=== PATIENT | male | born 1940 | race Caucasian/White ===

== ENCOUNTER 2018-12-22 18:48 | Inpatient (IN) | payer MEDICARE, OTHER ==
[~2018-12-22] VITALS: Ht 177.8 cm; Wt 61.7 kg
[2018-12-22 19:47] LABS: BASOPHILS # (AUTO) 0.2 /CMM (0.0-0.2); BASOPHILS % (AUTO) 0.9 % (0.0-2.0); EOSINOPHILS % (AUTO) 1.2 % (0.0-6.0); HEMATOCRIT 31 % (39-51); HEMOGLOBIN 10.1 g/dL (13.5-17.5); LYMPHOCYTES # (AUTO) 3.4 /CMM (0.8-4.8); LYMPHOCYTES % (AUTO) 18.6 % (20.0-44.0); MEAN CORPUSCULAR HGB CONC 33 g/dl (31.0-36.0); MEAN CORPUSCULAR VOLUME 88 fL (80-96); MONOCYTES # (AUTO) 1.2 /CMM (0.1-1.30); MONOCYTES % (AUTO) 6.6 % (2.0-12.0); NEUTROPHILS # (AUTO) 13.4 /CMM (1.8-8.9); NEUTROPHILS % (AUTO) 72.7 % (43.0-81.0); PLATELET COUNT (AUTO) 489 /CMM (150-450); WHITE BLOOD COUNT (AUTO) 18.4 K/uL (4.3-11.0)
[2018-12-22 19:50] LABS: CALCIUM, SERUM 8.7 mg/dL (8.5-10.1); CARBON DIOXIDE 29 mmol/L (21-32); CHLORIDE 97 mmol/L (98-107); CREATININE 0.8 mg/dL (0.6-1.3); GLUCOSE 110 mg/dL (74-106); POTASSIUM 3.6 mmol/L (3.5-5.1); SODIUM SERUM 132 mmol/L (136-145); UREA NITROGEN, BLOOD 32 mg/dL (7-18)
--- NOTE | 2018-12-22 20:00 | NUR ---
RN NOTES RECEIVED PT WITH JTUBE OUT. PATIENT IS AOX 2. NO ACUTE RESPIRATORY DISTRESS. DENIES PAIN.AFEBRILE. SRI. AT BEDSIDE AND ASSESSED PT STOMA WTIH ORDER TO ADMIT PATIENT TO REPLACED J-TUBE.
--- NOTE | 2018-12-22 20:01 | NUR ---
MS 314-2
--- NOTE | 2018-12-22 20:20 | NUR ---
RN NOTES IV STARTED ON RFA G 20 WITH GOOD BLOOD RETURN
--- NOTE | 2018-12-22 21:20 | NUR ---
RN NOTES CALLED AND REPORT GIVEN TO KOBE ANTOINE FROM [facility] .
[2018-12-22 21:30] VITALS: BP 106/68
--- NOTE | 2018-12-22 21:30 | NUR ---
rn ms admitting opening notes received patient from er via [place]hol[place], safely transferred to bed , awake alert and oriented x2, respirations even and unlabored with equal rise and fall of chest, able to make needs known, graf catheter in place, draining clear edmond urine color, iv site to right fa #20 intact and patent, no redness, no infiltration, body assessment done, noted with sacrococcyx pressure ulcer, left and right heel dti's and multiple scabs to abdomen area, left and right lateral torso area, pictures taken placed in chart, jtube site stoma red in color noted blue suture to site, site was cleansed and covered with dd. belongings list done, offloaded affected wound sites, repositioned, dr mary grace watkins aware of admission awaiting orders and will follow md orders, at this time patient remains comfortable. all needs were attended, will continue to monitor and address needs.
[2018-12-22] MEDS ORDERED: IV D5/ 0.9% NACL 1,000 ML IV SCH (22:00)
--- NOTE | 2018-12-22 22:20 | NUR ---
rn ms notes called and spoke to mary grace munoz regarding patient stating pain 7/10 new order obtained and read back morphine 2mg iv q2hr prn for pain
[2018-12-22] MEDS: MORPHINE SULFATE INJ 2 MG/ML DISP.SYRIN IV PRN (22:59)
--- NOTE | 2018-12-22 22:59 | NUR ---
rn ms notes morphine prn given as ordered patient complaint of generalized pain 12/18 vs wnl. will continue to monitor for effectiveness
[2018-12-23] MEDS ORDERED: ZINC220C6 JT (03:42)
[2018-12-23] MEDS ORDERED: TERA5CAP4 JT (03:42)
[2018-12-23] MEDS ORDERED: INSU100V3 SQ (03:42)
[2018-12-23] MEDS ORDERED: FAMO20TA8 JT (03:42)
[2018-12-23] MEDS ORDERED: DOCU-141 JT (03:42)
[2018-12-23] MEDS ORDERED: CARB-94 JT (03:42)
[2018-12-23] MEDS ORDERED: WARF3TAB29 JT (03:42)
[2018-12-23] MEDS ORDERED: ARGI1POW13 JT (03:42)
[2018-12-23] MEDS ORDERED: LOPE2TAB25 JT (03:42)
[2018-12-23] MEDS ORDERED: LIPA1CAP8 JT (03:42)
[2018-12-23] MEDS ORDERED: ASCO-340 JT (03:42)
[2018-12-23] MEDS ORDERED: MULT1TAB73 JT (03:42)
[2018-12-23] MEDS ORDERED: FERR300L JT (03:42)
--- NOTE | 2018-12-23 06:28 | NUR ---
RN MS CLOSING NOTES RECEIVED PATIENT IN BED AWAKE ALERT AND ORIENTED X 2, RESPIRATIONS EVEN AND UNLABORED WITH EQUAL RISE AND FALL OF CHEST, DENIES ANY PAIN AT THIS TIME, IV SITE TO RIGHT FA#20 G INTACT AND PATENT, NO REDNESS, NO INFILTRATION PRESENT, IVF RUNNING ORDERED, REPOSITIONED FOR WOUND AND SKIN MANAGEMENT, HEELS OFFLOADED, PATIENT REMAINS NPO AT THIS TIME, HEAD OF BED ELEVATED FOR ASPIRATION PRECAUTIONS, PATTERSON CATHETER INTACT AND PATENT, DRAINING WELL URINE CLEAR JANE COLOR, MED RECON IN PLACE MD TO F/UP. SAFETY PRECAUTIONS IN PLACE, LOW BED AND LOCKED , BED ALARM IN PLACE, ORAL CARE PROVIDED, JTUBE SITE DSG REMAINS CLEAN AND INTACT, SACRAL DRESSING INTACT, ALL NEEDS ATTENDED AT THIS TIME, WILL CONTINUE TO MONITOR AND ENDORSE TO NEXT SHIFT.
[2018-12-23 06:43] LABS: BASOPHILS # (AUTO) 0.4 /CMM (0.0-0.2); EOSINOPHILS % (AUTO) 1.5 % (0.0-6.0); HEMATOCRIT 29 % (39-51); HEMOGLOBIN 9.6 g/dL (13.5-17.5); LYMPHOCYTES # (AUTO) 2.1 /CMM (0.8-4.8); LYMPHOCYTES % (AUTO) 16.4 % (20.0-44.0); MEAN CORPUSCULAR HGB CONC 33 g/dl (31.0-36.0); MEAN CORPUSCULAR VOLUME 88 fL (80-96); MONOCYTES # (AUTO) 0.7 /CMM (0.1-1.30); MONOCYTES % (AUTO) 5.7 % (2.0-12.0); NEUTROPHILS # (AUTO) 9.3 /CMM (1.8-8.9); NEUTROPHILS % (AUTO) 73.4 % (43.0-81.0); PLATELET COUNT (AUTO) 466 /CMM (150-450); RED BLOOD CELL COUNT(AUTO) 3.33 MIL/uL (4.5-6.0); WHITE BLOOD COUNT (AUTO) 12.6 K/uL (4.3-11.0)
[2018-12-23 06:56] LABS: CALCIUM, SERUM 8.4 mg/dL (8.5-10.1); CARBON DIOXIDE 30 mmol/L (21-32); CHLORIDE 100 mmol/L (98-107); CREATININE 0.6 mg/dL (0.6-1.3); GLUCOSE 127 mg/dL (74-106); POTASSIUM 3.4 mmol/L (3.5-5.1); SODIUM SERUM 136 mmol/L (136-145); UREA NITROGEN, BLOOD 28 mg/dL (7-18)
--- NOTE | 2018-12-23 07:20 | NUR ---
RN OPENING NOTES RECEIVED PATIENT IN BED RESTING. A/OX 2-3, ABLE TO MAKE NEEDS KNOWN. NOT IN ANY FORM OF DISTRESS, NO SOB, DENIED PAIN OR DISCOMFORT AT THIS TIME. IV ACCESS INTACT AND PATENT. PATTERSON IN PLACE, DRAINING CLEAR JANE URINE. KEPT PATIENT SAFE AND COMFORTABLE. BED IN LOW/LOCKED POSITION ,HOB ELEVATED, SIDERAILS UPX2, CALL LIGHT IN REACH, BED ALARM ON. WILL CONTINUE TO MONIOTR ACCORDINGLY.
[2018-12-23] MEDS ORDERED: AMIN30LI2 JT (07:41)
[2018-12-23] MEDS ORDERED: POLY15DR40 EACHEYE (07:41)
[2018-12-23] MEDS ORDERED: ACET-868 JT (07:41)
[2018-12-23] MEDS ORDERED: IPRA3AMP23 IH (07:41)
[2018-12-23] MEDS ORDERED: ONDA4TAB5 JT (07:41)
[2018-12-23] MEDS ORDERED: NUT.237L30 JT (07:41)
[2018-12-23] MEDS ORDERED: DOCU50LI JT (07:41)
[2018-12-23] MEDS ORDERED: MAGN400O6 JT (07:41)
[2018-12-23] MEDS ORDERED: ACET-2605 JT (07:41)
[2018-12-23] MEDS ORDERED: ACET650S26 JT ×2 (07:41)
[2018-12-23] MEDS ORDERED: VIT500LI JT (07:41)
[2018-12-23] MEDS ORDERED: IV D5/ 0.9% NACL 1,000 ML IV PRN (09:00)
[2018-12-23 09:03] VITALS: BP 104/64
[2018-12-23] MEDS ORDERED: POTASSIUM CL. PREMIX PERIPHER. 50 ML IV SCH (11:22)
[2018-12-23] MEDS ORDERED: LOPERAMIDE HCL UDC(2 MG/10 ML) 2 MG/10 ML UDC GT PRN (14:00)
[2018-12-23] MEDS ORDERED: ACETAMINOPHEN 325 MG TABLET PO PRN (14:00)
[2018-12-23] MEDS ORDERED: ONDANSETRON HCL 4 MG/5 ML SOLUTION GT PRN (14:00)
[2018-12-23] MEDS ORDERED: GLUCERNA 1.2 1,000 ML BOTTLE JT SCH (14:00)
[2018-12-23] MEDS ORDERED: MAGNESIUM HYDROXIDE 30 ML UDC JT PRN (14:00)
[2018-12-23] MEDS ORDERED: MISCELLANEOUS MED 1 EA EA JT PRN (14:00)
[2018-12-23] MEDS ORDERED: ACETAMINOPHEN 650 MG/20.3 ML UDC JT PRN (14:00)
[2018-12-23] MEDS ORDERED: INSULIN REGULAR, HUMAN 100 UNIT/ML 3 ML VIAL SQ PRN (14:00)
[2018-12-23] MEDS: Potassium Chloride 40 MEQ in IV D5/ 0.9% NACL 1,000 ML IV PRN (14:49)
[2018-12-23 15:18] VITALS: BP 99/59
[2018-12-23] MEDS ORDERED: LIDOCAINE 1%-EPI 1:100,000 20 ML VIAL TP ONE ×2 (16:00→16:30)
--- NOTE | 2018-12-23 16:46 | NUR ---
RN NOTES: DIET; CONSENT; FAMILY CONTACT INFO SPOKE WITH MAURICIO (NIECE/DPOA) [phone]. PER MAURICIO, PATIENT IS TUBE FEEDING ONLY. MAY TAKE SMALL AMOUNT OF ICE CHIPS PO. WITNESS BY ELINA CASTILLO VIA PHONE CALL. DR ИРИНА PAREDES MADE AWARE. PER , MAIA TO GIVE ICE CHIPS. ALSO GAVE CONSENT TO REINSERTION OF TUBE FEEDING. WITNESS BY ELINA BARTHOLOMEW
[2018-12-23] MEDS: DOCUSATE SODIUM LIQ 100 MG/10 ML UDC JT SCH (17:00)
--- NOTE | 2018-12-23 17:30 | NUR ---
RN NOTES DR CARINA PAREDES AT BEDSIDE DOING REINSERTION OF TUBE FEEDING.
--- NOTE | 2018-12-23 17:37 | NUR ---
RN NOTES XRAY ORDERED TO CHECK PLACEMENT.
[2018-12-23] MEDS ORDERED: DIATR MEGLU/DIATRIZOATE SODIUM 30 ML BOTTLE (GASTROGRAPHIN) ONE (17:47)
[2018-12-23] MEDS: AMYLASE/LIPASE/PROTEASE 1 CAP.EC PO SCH (18:00)
[2018-12-23] MEDS: CLOTRIMAZOLE 1% 15 GM TUBE TP SCH (18:06)
--- NOTE | 2018-12-23 19:10 | NUR ---
RN MS OPENING NOTES RECEIVED PATIENT IN BED AWAKE ALERT AND ORIENTED X 2 ABLE TO MAKE SIMPLE NEEDS KNOWN, RESPIRATIONS EVEN AND UNLABORED WITH EQUAL RISE AND FALL OF CHEST, DENIES ANY PAIN OR DISCOMFORT AT THIS TIME, PATTERSON CATHETER INTACT AND DRAINING WELL URINE JANE COLOR CLEAR, HEELS OFFLOADED, SACRAL OFFLOADED, IV SITE TO RIGHT FA #20 G INTACT AND PATENT,IVF RUNNING ORDERED, NO REDNESS, NO INFILTRATION PRESENT, ABD SITE WITH GAUZE IN PLACE, AWAITING REGGIE FOR REINSERTION JT PROCEDURE ,PER MD ORDERS WILL CONTINUE TO HOLD FEEDING AND MEDS TILL FURTHER ORDERS. ORAL CARE PROVIDED, ORIENTED TO STAFF AND CALL LIGHT AND KEPT WITHIN REACH, LOW BED AND LOCKED, BED ALARM IN PLACE, PATIENT REFUSED TO HAVE ANY PRESSURE RELIEVING TO RIGHT HAND CONTRACTURE. WILL CONTINUE TO MONITOR ALL NEEDS ATTENDED AT THIS TIME, WILL CONTINUE TO MONITOR.
--- NOTE | 2018-12-23 19:30 | NUR ---
RN CLOSING NOTES PATIENT IN STABLE CONDITION, ALL NEEDS ATTENDED AND PROVIDED, ALL DUE MEDICATIONS GIVEN ORDERED. ASSISTED PATIENT WITH ADLS. TURNED AND REPOSITIONED PATIENT EVERY 2HRS NEEDED. WOUND CARE RENDERED. KEPT PATIENT SAFE AND COMFORTABLE. BED IN LOW/LOCKED POSITION, SIDERIALS UPX2, CALL LIGHT IN REACH. ENDORSED TO NIGHT RN FOR MARLEN.
--- NOTE | 2018-12-23 19:31 | NUR ---
RN NOTES ENDORSED TO ELINA CARLSON TO CALL/NOTIFY DR CARINA PAREDES, WHEN THE XRAY TUBE PLACEMENT RESULT COMES UP.
[2018-12-23] MEDS: IPRATROPIUM NEB FS 0.5 MG/2.5 ML AMPUL.NEB NEB SCH (19:42)
[2018-12-23 20:00] VITALS: BP 110/66
--- NOTE | 2018-12-23 20:00 | NUR ---
RN MS NOTES CALLED AND SPOKE TO DR.SAM PAREDES MADE AWARE OF XR ABDOMEN RESULTS. NO FURTHER ORDERS AT THIS TIME.
[2018-12-23 20:41] VITALS: BP 110/66
[2018-12-23] MEDS: CARBIDOPA/LEVODOPA 25/250 MG 1 UDTAB GT SCH (20:59)
[2018-12-23] MEDS: FAMOTIDINE (20 MG) 20 MG TABLET JT SCH (20:59)
[2018-12-23] MEDS: FERROUS SULFATE UDC 300 MG/5 ML UDC JT SCH (20:59)
[2018-12-23] MEDS: TERAZOSIN HCL 5 MG CAPSULE GT SCH (22:00)
--- NOTE | 2018-12-23 22:08 | NUR ---
rn ms notes unable to administer scheduled medications awaiting jt placement and further orders. per md orders hold jt meds and feeding.
[2018-12-24] MEDS: MORPHINE SULFATE INJ 2 MG/ML DISP.SYRIN IV PRN (01:11)
--- NOTE | 2018-12-24 01:11 | NUR ---
rn ms notes patient complaint of generalized pain and pain to sacral states "10/" offered pain medication morphine patient agreed. vs wnl 112/71,92,18,98%,97.6 morphine prn given as ordered will continue to monitor for effectiveness.
--- NOTE | 2018-12-24 01:26 | NUR ---
rn ms notes noted loose bowel movement liquid, foul odor, stool specimen collected for c-diff. new order for c-diff collection will continue to f/up for results and notify .
[2018-12-24] MEDS: IPRATROPIUM NEB FS 0.5 MG/2.5 ML AMPUL.NEB NEB SCH ×4 (02:18→20:09)
[2018-12-24] MEDS: Potassium Chloride 40 MEQ in IV D5/ 0.9% NACL 1,000 ML IV PRN ×2 (03:55→19:18)
[2018-12-24] MEDS: FERROUS SULFATE UDC 300 MG/5 ML UDC JT SCH ×3 (04:22→21:34)
[2018-12-24] MEDS: CARBIDOPA/LEVODOPA 25/250 MG 1 UDTAB GT SCH ×3 (04:22→21:34)
[2018-12-24 06:38] LABS: BASOPHILS % (AUTO) 0.2 % (0.0-2.0); EOSINOPHILS % (AUTO) 1.6 % (0.0-6.0); HEMATOCRIT 31 % (39-51); HEMOGLOBIN 9.8 g/dL (13.5-17.5); LYMPHOCYTES # (AUTO) 2.1 /CMM (0.8-4.8); LYMPHOCYTES % (AUTO) 17.5 % (20.0-44.0); MEAN CORPUSCULAR HGB CONC 32 g/dl (31.0-36.0); MEAN CORPUSCULAR VOLUME 89 fL (80-96); MONOCYTES # (AUTO) 0.8 /CMM (0.1-1.30); NEUTROPHILS # (AUTO) 8.9 /CMM (1.8-8.9); NEUTROPHILS % (AUTO) 73.7 % (43.0-81.0); PLATELET COUNT (AUTO) 518 /CMM (150-450); RED BLOOD CELL COUNT(AUTO) 3.44 MIL/uL (4.5-6.0); WHITE BLOOD COUNT (AUTO) 12.1 K/uL (4.3-11.0)
[2018-12-24 06:47] LABS: CALCIUM, SERUM 8.4 mg/dL (8.5-10.1); CARBON DIOXIDE 27 mmol/L (21-32); CHLORIDE 108 mmol/L (98-107); CREATININE 0.6 mg/dL (0.6-1.3); GLUCOSE 123 mg/dL (74-106); PHOSPHORUS 3.7 mg/dL (2.5-4.9); POTASSIUM 3.6 mmol/L (3.5-5.1); SODIUM SERUM 143 mmol/L (136-145); UREA NITROGEN, BLOOD 20 mg/dL (7-18)
--- NOTE | 2018-12-24 06:51 | NUR ---
RN MS CLOSING NOTES PATIENT IN BED AWAKE ALERT AND ORIENTED X 2 ABLE TO MAKE SIMPLE NEEDS KNOWN, RESPIRATIONS EVEN AND UNLABORED WITH EQUAL RISE AND FALL OF CHEST, DENIES ANY PAIN OR DISCOMFORT AT THIS TIME, PATTERSON CATHETER INTACT AND DRAINING WELL URINE JANE COLOR CLEAR, HEELS OFFLOADED, SACRAL OFFLOADED,WOUND CARE PROVIDED ORDERED,TOLERATED WELL, DRESSING REMAINS CLEAN/DRY AND INTACT, IV SITE TO RIGHT FA #20 G INTACT AND PATENT,IVF RUNNING ORDERED, NO REDNESS, NO INFILTRATION PRESENT, ABD STOMA SITE WITH CLEAN GAUZE IN PLACE, AWAITING REGGIE FOR REINSERTION JT PROCEDURE ,PER MD ORDERS HELD FEEDING AND MEDS TILL FURTHER ORDERS. ORAL CARE PROVIDED, SPECIALTY KCI MATTRESS PLACED AFFECTED WOUND AREAS OFFLOADED. FOR WOUND CARE AND SKIN MANAGEMENT.CALL LIGHT KEPT WITHIN REACH, LOW BED AND LOCKED, BED ALARM IN PLACE, PATIENT REFUSED TO HAVE ANY PRESSURE RELIEVING TO RIGHT HAND CONTRACTURE. WILL CONTINUE TO MONITOR ALL NEEDS ATTENDED AT THIS TIME, WILL CONTINUE TO MONITOR AND ENDORSE TO NEXT SHIFT. PATIENT REMAINS COMFORTABLE.
[2018-12-24] MEDS: AMYLASE/LIPASE/PROTEASE 1 CAP.EC PO SCH ×2 (08:00→13:00)
--- NOTE | 2018-12-24 08:00 | NUR ---
MS RN OPENING NOTES Received Patient resting and asleep in bed. A/O x 1-2. VS stable with no acute distress. Breathing even and unlabored on room air with no respiratory distress. Denies pain. Lara Cath in place and operational with clear edmond coloured output. Lara Cath in stoma placed to keep open. Stoma dressing clean, dry, and intact. 20g PIV on RFA clean, dry, intact. Safety precautions in place. Bed locked and set to lowest position with side rails x 2 up. All needs rendered at this time. Will continue to monitor.
--- NOTE | 2018-12-24 08:12 | NUR ---
WOUND CARE CONSULT WOUND CARE RECEIVED CONSULT FOR MULTIPLE WOUNDS. WOUND CARE WILL DEFER CONSULT AND TREATMENT PLANS TO PLASTIC SURGICAL TEAM INCLUDING DPDariusz VICENTE WHO ARE CURRENTLY FOLLOWING THIS PATIENT. PATIENT WITH REGINALD AT 13, ALL PRESSURE ULCER PREVENTION MEASURES ARE NOTED TO BE IN PLACE AT THIS TIME. WILL SEE PRN.
[2018-12-24 08:30] VITALS: BP 108/64
[2018-12-24] MEDS ORDERED: Z GUARD REMEDY 2 OZ OINT TP PRN (08:30)
[2018-12-24] MEDS: PROSOURCE / PROSTAT (PYXIS) 30 ML UDC GT SCH ×2 (09:00→17:29)
[2018-12-24] MEDS: DOCUSATE SODIUM LIQ 100 MG/10 ML UDC JT SCH ×2 (09:00→16:05)
[2018-12-24] MEDS: FAMOTIDINE (20 MG) 20 MG TABLET JT SCH ×2 (09:00→21:34)
[2018-12-24] MEDS: ACETAMINOPHEN 650 MG/20.3 ML UDC JT SCH (09:00)
[2018-12-24] MEDS: MULTIVIT W/MINERALS 1 TAB TABLET GT SCH (09:00)
[2018-12-24] MEDS: ZINC SULFATE 220 MG CAPSULE JT SCH (09:00)
[2018-12-24] MEDS: ASCORBIC ACID 500 MG TABLET GT SCH ×2 (09:00→16:04)
[2018-12-24] MEDS: DAKINS QUARTER STRENGTH (0.125%) 480 ML BOTTLE TOP SCH (09:30)
[2018-12-24] MEDS: CLOTRIMAZOLE 1% 15 GM TUBE TP SCH ×2 (09:30→17:29)
[2018-12-24] MEDS: Z GUARD REMEDY 2 OZ OINT TP SCH (09:31)
--- NOTE | 2018-12-24 10:47 | NUR ---
MS RN NOTES Notified Dr. Ferraro of stool results positive for C-Diff at this time. Obtained order for Flagyl 500mg IVPB TID. Noted and carried out. Isolation precautions in place. Will continue to monitor.
--- NOTE | 2018-12-24 12:34 | NUR ---
MS RN NOTES Notified and requested consult from [facility] for C-Diff. Will continue to monitor.
[2018-12-24] MEDS: METRONIDAZOLE 500MG/ NS 100ML 500 MG in PREMIX 1 EA IV SCH ×2 (16:02→21:36)
[2018-12-24 16:19] VITALS: BP_SYST 114; BP_SYST 167; BP_DIAS 66; BP_DIAS 78
[2018-12-24] MEDS ORDERED: LIDOCAINE 1%-EPI 1:100,000 20 ML VIAL TP ONE (16:30)
[2018-12-24] MEDS ORDERED: WARFARIN SODIUM 2.5 MG TABLET PO SCH (17:00)
[2018-12-24] MEDS: LIPASE/PROTEASE/AMYLASE 1 EACH CAPSULE.DR PO SCH (17:28)
[2018-12-24] MEDS: VANCOMYCIN HCL 125 MG/2.5 ML ORAL.SUSP JT SCH ×2 (17:43→23:47)
[2018-12-24] MEDS: GLUCERNA 1.2 1,000 ML BOTTLE NG PRN (19:18)
--- NOTE | 2018-12-24 19:18 | NUR ---
MS RN CLOSING NOTES Patient resting and asleep in bed. A/O x 1-2. VS stable with no acute distress. Breathing even and unlabored on room air with no respiratory distress. Denies pain. Wound care treatments done as ordered. Lara Cath in place and operational with clear edmond coloured output. J-TUBE in place and operational with Glucerna 1.2 running at 30ml/hr. Patient tolerating well. J-TUBE site clean and dry with dressing in place. 20g PIV on RFA clean, dry, intact with IVF running at 70ml/hr. Safety precautions in place. Bed locked and set to lowest position with side rails x 2 up. All needs rendered at this time. Will endorse plan of care to oncoming shift.
--- NOTE | 2018-12-24 19:30 | NUR ---
RN MS OPENING NOTES RECEIVED PATIENT RESTING IN BED. EASILY AROUSABLE. ALERT AND ORIENTED X2, VERBALLY RESPONSIVE. BREATHING EVEN AND UNLABORED. NO SOB NOTED. TOLERATING ROOM AIR. NO S/S OF PAIN OR DISCOMFORT. NO FACIAL GRIMACING. IV ON RIGHT FOREARM INTACT AND PATENT WITH IVF INFUSING. SKIN DRY AND WARM TO TOUCH. AFEBRILE. PATIENT NOTED WITH PATTERSON CATH, INTACT AND DRAINING WELL. PATIENT ALSO ON GTUBE GLUCERNA AT 30ML/HR. TOLERATING WELL WITH NO RESIDUAL NOTED. ALL OTHER NEEDS ATTENDED TO. SAFETY MEASURES IN PLACE. CALL LIGHT WITHIN REACH. WILL CONTINUE TO MONITOR.
[2018-12-24 20:47] VITALS: BP 118/69
[2018-12-24] MEDS: TERAZOSIN HCL 5 MG CAPSULE GT SCH (21:34)
--- NOTE | 2018-12-25 00:30 | NUR ---
RN NOTES Report received from ELINA Dave. Patient asleep, easily arousable. Breathing even and unlabored. Not in any distress. Peripheral IV infusing at 70mL/hr. Tube feeding of Glucerna running at 35mL/hr. Patient on low air loss mattress. Lara catheter in place, draining well. Safety measures in place; call light within reach, bed in low, locked position. Will continue to monitor
[2018-12-25] MEDS: IPRATROPIUM NEB FS 0.5 MG/2.5 ML AMPUL.NEB NEB SCH ×4 (01:15→19:30)
--- NOTE | 2018-12-25 03:15 | NUR ---
RN NOTES Patient moved his bowels. Wound treatment done. Dressing changed
[2018-12-25] MEDS: FERROUS SULFATE UDC 300 MG/5 ML UDC JT SCH ×3 (05:00→21:04)
[2018-12-25] MEDS: METRONIDAZOLE 500MG/ NS 100ML 500 MG in PREMIX 1 EA IV SCH ×3 (05:00→21:23)
[2018-12-25] MEDS: CARBIDOPA/LEVODOPA 25/250 MG 1 UDTAB GT SCH ×3 (05:00→21:04)
[2018-12-25] MEDS: VANCOMYCIN HCL 125 MG/2.5 ML ORAL.SUSP JT SCH ×3 (05:01→18:40)
--- NOTE | 2018-12-25 06:51 | NUR ---
MS RN CLOSING NOTES Patient sleeping in bed, easily arousable. Breathing even and unlabored. Not in any distress. Peripheral IV infusing at 70mL/hr. Tube feeding infusing at 40mL/hr with no residuals at this time. Lara catheter in place- drained 450mL of urine. Isolation precautions maintained. Safety measures in place; call light within reach, bed in low, locked position. Will endorse MARLEN to oncoming RN
[2018-12-25 08:00] VITALS: BP 120/68
--- NOTE | 2018-12-25 08:10 | NUR ---
RN OPENING NOTE REC PT. PT STABLE, VSS, NO S/S OF SOB/RESP DISTRESS. PT TO HAVE SACRAL DEBRIDEMENT TODAY. SAFETY MEASURES IN PLACE, CALL LIGHT IN REACH. WILL CONT TO MONITOR.
[2018-12-25] MEDS: MULTIVIT W/MINERALS 1 TAB TABLET GT SCH (08:55)
[2018-12-25] MEDS: ACETAMINOPHEN 650 MG/20.3 ML UDC JT SCH (08:55)
[2018-12-25] MEDS: Z GUARD REMEDY 2 OZ OINT TP SCH (08:55)
[2018-12-25] MEDS: ASCORBIC ACID 500 MG TABLET GT SCH ×2 (08:55→16:26)
[2018-12-25] MEDS: ZINC SULFATE 220 MG CAPSULE JT SCH (08:55)
[2018-12-25] MEDS: FAMOTIDINE (20 MG) 20 MG TABLET JT SCH ×2 (08:55→21:04)
[2018-12-25] MEDS: DOCUSATE SODIUM LIQ 100 MG/10 ML UDC JT SCH ×2 (08:56→16:28)
[2018-12-25] MEDS: LIPASE/PROTEASE/AMYLASE 1 EACH CAPSULE.DR PO SCH ×3 (08:56→18:40)
[2018-12-25] MEDS: PROSOURCE / PROSTAT (PYXIS) 30 ML UDC GT SCH ×3 (09:09→16:28)
[2018-12-25] MEDS: DAKINS QUARTER STRENGTH (0.125%) 480 ML BOTTLE TOP SCH (09:10)
[2018-12-25] MEDS: CLOTRIMAZOLE 1% 15 GM TUBE TP SCH ×2 (09:10→16:28)
[2018-12-25] MEDS ORDERED: SILVER NITRATE APPLICATOR 1 EA BOX TP STA (10:28)
[2018-12-25] MEDS: Potassium Chloride 40 MEQ in IV D5/ 0.9% NACL 1,000 ML IV PRN (12:43)
[2018-12-25] MEDS: HYDROGEL DRESSING 90 GM TUBE TP SCH ×2 (13:30→21:00)
[2018-12-25 16:00] VITALS: BP 125/70
[2018-12-25] MEDS: WARFARIN SODIUM 2 MG TABLET PO SCH (16:27)
--- NOTE | 2018-12-25 17:50 | NUR ---
RN CLOSING NOTE BEDSIDE SURGERY [id number]. PT HAS MILD, TOLERABLE LEVEL OF PAIN POST SURGERY. ALL PT NEEDS ANTICIPATED AND MET. SAFETY MEASURES IN PLACE, CALL LIGHT IN REACH. WILL ENDORSE TO COMMISSARY CLERK FOR MARLEN.
--- NOTE | 2018-12-25 19:30 | NUR ---
MS CULINARY ARTS INSTRUCTOR INITIAL NOTES RECEIVED REPORT FROM AM NURSE AND SEEN PT IN BED AWAKE AND ALERT, RE-ORIENTED WHERE HE AT HOW TO USED THE CALL LIGHT SYSTEM. NO SIGNS OF ANY DISTRESS NOTED. IVF D5NS INFUSING AT THIS TIME. G-TUBE FEEDING GLUCERNA AT 55ML/HR TOLERATED WELL. NO ASPIRATION NOTED. O RESIDUAL NOTED. KEPT HIM WARM AND COMFORTABLE AT ALL TIMES. ISOLATION PRECAUTION IMPLEMENTED AND OBSERVED. WILL CONTINUE MONITORING. PLACE CALL LIGHT AT REACH.
[2018-12-25 20:00] VITALS: BP 118/69
[2018-12-25] MEDS: TERAZOSIN HCL 5 MG CAPSULE GT SCH (21:25)
--- NOTE | 2018-12-25 22:00 | NUR ---
ms sydnie notes routine meds given letty g-tube and tolerated well no aspiration noted. wound care treatment also done , reposition pt for comfort. kept him warm and comfortable at all times. will continue monitoring.
[2018-12-26] MEDS: VANCOMYCIN HCL 125 MG/2.5 ML ORAL.SUSP JT SCH ×4 (00:16→17:33)
--- NOTE | 2018-12-26 00:47 | NUR ---
ms sydnie notes' pt sleeping comfortably in bed without any distress noted. IVF still infusing and g-tube tolerated well, breathing even and non-labored. kept him warm and comfortable at all times. will continue monitoring.
[2018-12-26] MEDS: IPRATROPIUM NEB FS 0.5 MG/2.5 ML AMPUL.NEB NEB SCH ×4 (01:30→20:42)
[2018-12-26] MEDS: METRONIDAZOLE 500MG/ NS 100ML 500 MG in PREMIX 1 EA IV SCH ×3 (04:10→21:22)
[2018-12-26] MEDS: CARBIDOPA/LEVODOPA 25/250 MG 1 UDTAB GT SCH ×3 (05:18→20:41)
[2018-12-26] MEDS: FERROUS SULFATE UDC 300 MG/5 ML UDC JT SCH ×3 (05:18→20:41)
[2018-12-26] MEDS: CLOTRIMAZOLE 1% 15 GM TUBE TP SCH ×3 (06:00→17:36)
[2018-12-26] MEDS: Z GUARD REMEDY 2 OZ OINT TP SCH ×2 (06:00→09:13)
[2018-12-26] MEDS: HYDROGEL DRESSING 90 GM TUBE TP SCH ×3 (06:00→22:36)
[2018-12-26] MEDS: Potassium Chloride 40 MEQ in IV D5/ 0.9% NACL 1,000 ML IV PRN ×2 (06:19→20:40)
--- NOTE | 2018-12-26 06:45 | NUR ---
ms trade promotion analyst closing notes pt awake and alert watching TV and no signs of any distress noted at this time. Morning care done as well as his wound care treatment. all due meds given and all needs met . Stable letty the night and slept well. respiration even and non-labored. G-tube feeding tolerated well , no aspiration noted. kept him warm and comfortable at all times. will endorse to am nurse for continuity of care.
[2018-12-26 06:51] LABS: BASOPHILS % (AUTO) 0.2 % (0.0-2.0); EOSINOPHILS % (AUTO) 2.4 % (0.0-6.0); HEMATOCRIT 29 % (39-51); HEMOGLOBIN 9.5 g/dL (13.5-17.5); LYMPHOCYTES # (AUTO) 2.4 /CMM (0.8-4.8); LYMPHOCYTES % (AUTO) 21.9 % (20.0-44.0); MEAN CORPUSCULAR HGB CONC 32 g/dl (31.0-36.0); MEAN CORPUSCULAR VOLUME 89 fL (80-96); MONOCYTES # (AUTO) 0.7 /CMM (0.1-1.30); MONOCYTES % (AUTO) 5.9 % (2.0-12.0); NEUTROPHILS # (AUTO) 7.7 /CMM (1.8-8.9); NEUTROPHILS % (AUTO) 69.6 % (43.0-81.0); PLATELET COUNT (AUTO) 457 /CMM (150-450); WHITE BLOOD COUNT (AUTO) 11.1 K/uL (4.3-11.0)
[2018-12-26 07:08] LABS: CALCIUM, SERUM 8.1 mg/dL (8.5-10.1); CARBON DIOXIDE 23 mmol/L (21-32); CHLORIDE 114 mmol/L (98-107); CREATININE 0.6 mg/dL (0.6-1.3); GLUCOSE 131 mg/dL (74-106); MAGNESIUM 1.8 mg/dL (1.8-2.4); POTASSIUM 3.9 mmol/L (3.5-5.1); SODIUM SERUM 149 mmol/L (136-145); UREA NITROGEN, BLOOD 13 mg/dL (7-18)
[2018-12-26 08:00] VITALS: BP 110/61
--- NOTE | 2018-12-26 08:00 | NUR ---
MS RN AM NOTES RECEIVED PT IN BED AWAKE AND ALERT, RE-ORIENTED WHERE HE IS AND HOW TO USE THE CALL LIGHT. NO SIGNS OF ANY DISTRESS NOTED. IVF D5NS INFUSING AT THIS TIME. G-TUBE FEEDING GLUCERNA AT 55ML/HR TOLERATED WELL. HOB ELEVATED.NO ASPIRATION NOTED. NO RESIDUAL NOTED. KEPT HIM WARM AND COMFORTABLE AT ALL TIMES. C DIFF CONTACT ISOLATION PRECAUTIONS IMPLEMENTED AND OBSERVED. WILL CONTINUE MONITORING. PLACED CALL LIGHT WITHIN REACH.
[2018-12-26] MEDS: DOCUSATE SODIUM LIQ 100 MG/10 ML UDC JT SCH ×2 (09:00→17:00)
[2018-12-26] MEDS: LIPASE/PROTEASE/AMYLASE 1 EACH CAPSULE.DR PO SCH ×3 (09:12→17:33)
[2018-12-26] MEDS: POLYVINYL ALCOHOL 15 ML BOTTLE EACHEYE PRN (09:12)
[2018-12-26] MEDS: FAMOTIDINE (20 MG) 20 MG TABLET JT SCH ×2 (09:12→20:41)
[2018-12-26] MEDS: ZINC SULFATE 220 MG CAPSULE JT SCH (09:12)
[2018-12-26] MEDS: ASCORBIC ACID 500 MG TABLET GT SCH ×2 (09:12→17:33)
[2018-12-26] MEDS: MULTIVIT W/MINERALS 1 TAB TABLET GT SCH (09:13)
[2018-12-26] MEDS: ACETAMINOPHEN 650 MG/20.3 ML UDC JT SCH (09:34)
--- NOTE | 2018-12-26 10:30 | NUR ---
MEDICAL RECORDS:DC SUMMARY,MICROBIO NOTES AND LATEST ID NOTES FROM [facility] AND [facility] IN [place] OBTAINED AND IS PLACED IN THE CHART.
[2018-12-26] MEDS: PROSOURCE / PROSTAT (PYXIS) 30 ML UDC GT SCH ×2 (10:49→17:33)
--- NOTE | 2018-12-26 11:30 | NUR ---
PT'S JT SLIPPED OFF FROM PT'S JT SITE WITH SUTURE STILL ON THE JT.NO BLEEDING NOTED.NOTIFIED JAMIA FARRIS NP AND MADE AWARE WITH ORDERS TO REINSERT PT'S JTUBE.CONSENT OBTAINED BY CALLING PT'S NIECE VIA PHONE WITH ELINA CALVILLO CO WITNESS VIA PHONE.
--- NOTE | 2018-12-26 12:20 | NUR ---
REINSERT PT'S JTUBE WITH GTUBE FR 16 BY RODRIGUEZ NEWBERRYPT TOLERATED WELL.WITH YELLOW DRAINAGE ON THE JT SITE.KEPT CLEAN AND DRY AND APPLIED MEPILEX ON MULTIPLE ABDOMINAL ABRASIONS.STAT KUB WITH GASTROGRAFFIN SOLUTION VIA JT TUBE ADMINISTERED. AWAITING FOR RESULTS.
[2018-12-26] MEDS ORDERED: DIATR MEGLU/DIATRIZOATE SODIUM 30 ML BOTTLE (GASTROGRAPHIN) ONE (12:26)
[2018-12-26 15:30] VITALS: BP 118/71
[2018-12-26] MEDS: MORPHINE SULFATE INJ 2 MG/ML DISP.SYRIN IV PRN (17:34)
[2018-12-26] MEDS: WARFARIN SODIUM 2 MG TABLET PO SCH (17:36)
[2018-12-26] MEDS ORDERED: VANC125C11 JT (17:57)
[2018-12-26] MEDS ORDERED: METR500P3 IV (17:57)
--- NOTE | 2018-12-26 19:22 | NUR ---
NOTIFIED RODRIGUEZ GARCIA OF PT'S LEAKING MODERATE YELLOW DRAINAGE ON THE JT SITE.WITH NO NEW ORDER.
--- NOTE | 2018-12-26 19:30 | NUR ---
ms sydnie initial notes received report from nurse Lopes and checked the patient he's awake and watching tv , when i started talking to him he smiled and denies any pain or any discomfort. he still on IVF d5ns with 40 meq kcl at 70ml/hr infusing on his right forearm patent and intact. g-tube feeding Glucerna at 55 ml/hr tolerated well no aspiration noted. kept him on semi fowlers position with side rails x2 up and bed in low and lock in position. Isolation precaution implemented and observed. place call light at reach. will continue monitoring.
[2018-12-26 20:00] VITALS: BP 128/80
[2018-12-26] MEDS: GLUCERNA 1.2 1,000 ML BOTTLE NG PRN (20:40)
--- NOTE | 2018-12-26 21:09 | NUR ---
ms sydnie notes routine meds given letty g-tube and tolerated well. Sponges bath done with the helped of brayan Allison and wound care treatment also done as ordered. reposition pt for comfort. kept him warm and comfortable at all times. will continue monitoring.
[2018-12-26] MEDS: TERAZOSIN HCL 5 MG CAPSULE GT SCH (22:35)
--- NOTE | 2018-12-27 | NUR ---
ms freelance recruiter notes pt resting comfortably in bed without any acute distress noted.G-tube tolerated well no aspiration noted. IVF still infusing. graf draining well. kept him warm and comfortable at all times. will continue monitoring.
[2018-12-27] MEDS: VANCOMYCIN HCL 125 MG/2.5 ML ORAL.SUSP JT SCH ×4 (00:17→17:48)
[2018-12-27] MEDS: IPRATROPIUM NEB FS 0.5 MG/2.5 ML AMPUL.NEB NEB SCH ×4 (01:56→19:30)
[2018-12-27 04:00] VITALS: BP 130/95
[2018-12-27] MEDS: METRONIDAZOLE 500MG/ NS 100ML 500 MG in PREMIX 1 EA IV SCH ×3 (05:22→21:12)
[2018-12-27] MEDS: CARBIDOPA/LEVODOPA 25/250 MG 1 UDTAB GT SCH ×3 (05:25→21:12)
[2018-12-27] MEDS: FERROUS SULFATE UDC 300 MG/5 ML UDC JT SCH ×3 (05:25→21:13)
--- NOTE | 2018-12-27 07:29 | NUR ---
surgical appliances salesperson closing notes pt resting comfortably in bed without any acute distress noted. stable letty the night and slept well . still having diarrhea but mild to moderate amount. all due meds given and all needs met. ivf still infusing and g-tube feeding tolerated well no aspiration noted. graf draining well. woun care treatment also done as ordered. kept him warm and comfortable at all times. place call light at reach. endorse to am nurse for continuity of care.
[2018-12-27 08:00] VITALS: BP 104/64
--- NOTE | 2018-12-27 08:00 | NUR ---
MS RN AM NOTES RECEIVED PT IN BED AWAKE AND ALERT, RE-ORIENTED WHERE HE IS AND HOW TO USE THE CALL LIGHT. NO SIGNS OF ANY DISTRESS NOTED. IVF D5NS + 40 MEQKCL INFUSING AT THIS TIME. G-TUBE FEEDING GLUCERNA AT 55ML/HR TOLERATED WELL. HOB ELEVATED.NO ASPIRATION NOTED. NO RESIDUAL NOTED. KEPT HIM WARM AND COMFORTABLE AT ALL TIMES. C DIFF CONTACT ISOLATION PRECAUTIONS IMPLEMENTED AND OBSERVED. WOUND TX DONE ORDERED.TURNED EVERY TWO HRS.WILL CONTINUE MONITORING. PLACED CALL LIGHT WITHIN REACH.
[2018-12-27] MEDS: DOCUSATE SODIUM LIQ 100 MG/10 ML UDC JT SCH ×2 (08:45→16:10)
[2018-12-27] MEDS: ZINC SULFATE 220 MG CAPSULE JT SCH (08:45)
[2018-12-27] MEDS: FAMOTIDINE (20 MG) 20 MG TABLET JT SCH ×2 (08:45→21:12)
[2018-12-27] MEDS: ASCORBIC ACID 500 MG TABLET GT SCH ×2 (08:45→17:42)
[2018-12-27] MEDS: LIPASE/PROTEASE/AMYLASE 1 EACH CAPSULE.DR PO SCH ×3 (08:45→17:42)
[2018-12-27] MEDS: ACETAMINOPHEN 650 MG/20.3 ML UDC JT SCH (08:45)
[2018-12-27] MEDS: MULTIVIT W/MINERALS 1 TAB TABLET GT SCH (08:45)
[2018-12-27] MEDS: Z GUARD REMEDY 2 OZ OINT TP SCH (08:52)
[2018-12-27] MEDS: PROSOURCE / PROSTAT (PYXIS) 30 ML UDC GT SCH ×2 (08:52→17:41)
[2018-12-27] MEDS: HYDROGEL DRESSING 90 GM TUBE TP SCH ×2 (08:53→21:43)
[2018-12-27] MEDS: CLOTRIMAZOLE 1% 15 GM TUBE TP SCH ×2 (08:53→18:14)
--- NOTE | 2018-12-27 11:52 | NUR ---
PT WAS SEEN BY ABNER MONTAÑO FOR SWALLOW EVAL AND STATED THAT PT IS SAFE FOR ORAL GRATIFICATION OF PUREE WITH THIN LIQUIDS.
[2018-12-27] MEDS: MORPHINE SULFATE INJ 2 MG/ML DISP.SYRIN IV PRN (13:02)
--- NOTE | 2018-12-27 14:36 | NUR ---
ADRIAN OF [place] AT [facility],DIRECT ADMISSION SURFACE HYDROLOGIST,CALLED CHECKING OF PT'S DISCHARGE AND WANTS TO BE NOTIFIED AND CALLED IF PT WILL BE DISCHARGE BACK TO THE FACILITY.
[2018-12-27 15:51] VITALS: BP 100/60
[2018-12-27] MEDS: WARFARIN SODIUM 2 MG TABLET PO SCH (17:45)
--- NOTE | 2018-12-27 17:53 | NUR ---
CALLED PHARMACY AND SPOKE TO AVINASH REQUESTING FOR IVF D5NS+40 MEQ KCL AND STATED THAT THEY STILL HAVE TO PREPARE IT.
--- NOTE | 2018-12-27 17:56 | NUR ---
CHECKED THE REFRIGERATOR AND ALL THE CASSETTES IN THE MED ROOM BUT TO NO AVAIL
[2018-12-27] MEDS: Potassium Chloride 40 MEQ in IV D5/ 0.9% NACL 1,000 ML IV PRN (18:15)
--- NOTE | 2018-12-27 19:30 | NUR ---
PT RESTING IN BED WITH HOB ELEVATED AND SIPPING ORANGE JUICE AND OCCASIONALLY CHEWING ICE CHIPS TOLERATING WELL.NO COUGHING OR S/S OF ASPIRATION NOTED.
--- NOTE | 2018-12-27 19:50 | NUR ---
rn initial notes; received report from sheri rankin rn. pt in bed, awake, a/o x 2-3, with periods of confusion, able to understand paraguayan, and make his needs known. respirations even and unlabored. pt has iv access on right fa g 20, patent and flushing well, infusing with KCL 40meq in d5ns 1L at 70ml/hr. no s/s of iv infiltration noted. pt s/p jtube reinsertion, per day rn report, pt was seen by surgeon's supervisor electronic coils, now has gtube using fr 16 on a j-tube balloon, sutured. still with noted leak but md and surgeon aware. okay to use for feeding and meds, currently receiving glucerna 1.2 at 55ml/hr. s/p sacral wound debridement, with treatment orders posted. ble offloaded. pt on cdiff isolation, ppe utilized. safety precautions for fall initiated, call light in reach, will continue monitoring pt.
[2018-12-27 20:00] VITALS: BP 122/64
--- NOTE | 2018-12-27 20:00 | NUR ---
rn notes: went to do assessment, pt not in the mood, frowning, stated to leave him alone. informed pt rn would like to discuss about plan of care tonight, which pt listened to. afterwards i check his abdomen and gtube site, residual. gtube site noted to have redness, gtube sutured, noted some leak yellowish fluid/secretion around area, pat dry, cleansed with ns, applied new 4x4 gauze. as per gtube residual, nothing obtained, 0 ml. no resistance noted while flushing gtube. pt refused mepilex application for his hand, also refusing the soft tiny dodger ball for the hand, which pt used because he's contacted, pt repeatedly saying to leave him alone. informed pt rn and director of blood are always available and will be there to help him out, informed about hourly rounding. will continue monitoring pt.
--- NOTE | 2018-12-27 20:13 | NUR ---
rn notes: pt refused breathing treatment, education provided to pt, but pt still refused, stated " i dont need anything, leave me alone"
--- NOTE | 2018-12-27 20:30 | NUR ---
rn notes; pt had loose bm, folder taper operator provided perineal care, performed wound care treatment as sacral wound area became soaked with loose bm.
--- NOTE | 2018-12-27 21:11 | NUR ---
rn notes: family came to visit pt, informed family that pt refused for breathing tx, family convinced pt to have the treatment, contacted rt latrice, made aware
[2018-12-27] MEDS: GLUCERNA 1.2 1,000 ML BOTTLE NG PRN (21:24)
[2018-12-27 21:32] VITALS: BP 107/66
[2018-12-27] MEDS: TERAZOSIN HCL 5 MG CAPSULE GT SCH (21:32)
--- NOTE | 2018-12-27 22:00 | NUR ---
rn notes: changed pt's diaper as pt had loose bm. wound care treatment provided to pt at this time
--- NOTE | 2018-12-27 22:19 | NUR ---
RN NOTES: CONTACTED MD FORESTRY CONSERVATION WORKER REGARDING RECOMMENDATION FOR RECTAL TUBE. PT BEEN HAVING LOOSE BM, POSITIVE CDIFF, S/P SACRAL WOUND DEBRIDEMENT, PRONE TO INFECTION. PT HAD 3X LOOSE BM FROM 1900, AND ANOTHER 3 LOOSE BM DURING DAY SHIFT. PT MAY BENEFIT FROM RECTAL TUBE GIVEN THE CONDITION AND PER CLINICAL ASSESSMENT, DISCUSSED WITH THE PT, PT AGREE. RELAYED TO MD DR MCKEON, PER DR LINDA BRANDON TO HAVE RECTAL TUBE.
--- NOTE | 2018-12-27 22:45 | NUR ---
rn notes: order for insertion of flexiseal/rectal tube, procedure performed with assistance of another shaun lopez and help of brayan castle. prior to procedure, risk and benefits discussed with pt, pt agree and understand, witnessed by another shaun lopez. pt tolerated the procedure.
[2018-12-28] MEDS: VANCOMYCIN HCL 125 MG/2.5 ML ORAL.SUSP JT SCH ×5 (00:22→23:43)
[2018-12-28] MEDS: IPRATROPIUM NEB FS 0.5 MG/2.5 ML AMPUL.NEB NEB SCH ×4 (01:37→19:46)
[2018-12-28] MEDS: FERROUS SULFATE UDC 300 MG/5 ML UDC JT SCH ×3 (04:39→21:32)
[2018-12-28] MEDS: METRONIDAZOLE 500MG/ NS 100ML 500 MG in PREMIX 1 EA IV SCH ×3 (04:39→21:30)
[2018-12-28] MEDS: CARBIDOPA/LEVODOPA 25/250 MG 1 UDTAB GT SCH ×3 (04:39→21:32)
--- NOTE | 2018-12-28 05:00 | NUR ---
RN NOTES: WOUND CARE DONE ORDERED, ASSISTED CAR DETAILER IN PROVIDING BED BATH TO THE PT. CHECKED PLACEMENT OF RECTAL TUBE TOGETHER WITH ANOTHER RN NABIL FROM [facility].
[2018-12-28 05:35] VITALS: BP 115/66
[2018-12-28] MEDS: MORPHINE SULFATE INJ 2 MG/ML DISP.SYRIN IV PRN ×3 (05:42→17:26)
--- NOTE | 2018-12-28 05:42 | NUR ---
PRN MORPHINE: PT C/O 12/18 SACRAL PAIN, PRN MORPHINE 2MG IVP ADMINISTERED TO PT AT THIS TIME, WILL CONTINUE TO MONITOR AND REASSESS PT
--- NOTE | 2018-12-28 06:42 | NUR ---
RN CLOSING NOTES: PT IN BED, REMAINS A/O X2-3 WITH PERIODS OF CONFUSION. PT REMAINS ON CDIFF ISOLATION, PPE UTILIZED. IV ACCESS REMAINS PATENT AND FLUSHING WELL, INFUSING WITH D5NS +40MEQ KCL AT 70ML/HR. NO S/S OF IV INFILTRATION NOTED. J-TUBE REMAINS PATENT, IN PLACE, AND FLUSHES WELL WITHOUT MEETING ANY RESISTANCE. STILL RECEIVING GLUCERNA 1.2 AT 65ML/HR. NO RESIDUAL OBTAINED, REMAINS WITH LEAK OF YELLOWISH DRAINAGE AROUND SITE. RECTAL TUBE REMAINS IN PLACED. VS REMAINS STABLE, NEEDS ATTENDED. SAFETY PRECAUTIONS FOR FALL REMAINS ENGAGED, CALL LIGHT IN REACH, WILL ENDORSE TO DAY RN FOR CONTINUITY OF CARE.
[2018-12-28 06:50] LABS: CARBON DIOXIDE 23 mmol/L (21-32); CHLORIDE 108 mmol/L (98-107); CREATININE 0.7 mg/dL (0.6-1.3); GLUCOSE 117 mg/dL (74-106); MAGNESIUM 1.7 mg/dL (1.8-2.4); PHOSPHORUS 3.4 mg/dL (2.5-4.9); POTASSIUM 3.9 mmol/L (3.5-5.1); SODIUM SERUM 140 mmol/L (136-145); UREA NITROGEN, BLOOD 16 mg/dL (7-18)
[2018-12-28 07:04] LABS: BASOPHILS % (AUTO) 0.4 % (0.0-2.0); EOSINOPHILS % (AUTO) 4.1 % (0.0-6.0); HEMATOCRIT 30 % (39-51); HEMOGLOBIN 9.9 g/dL (13.5-17.5); LYMPHOCYTES # (AUTO) 2.9 /CMM (0.8-4.8); LYMPHOCYTES % (AUTO) 27.5 % (20.0-44.0); MEAN CORPUSCULAR HGB CONC 32 g/dl (31.0-36.0); MEAN CORPUSCULAR VOLUME 89 fL (80-96); MONOCYTES # (AUTO) 0.7 /CMM (0.1-1.30); MONOCYTES % (AUTO) 6.2 % (2.0-12.0); NEUTROPHILS # (AUTO) 6.5 /CMM (1.8-8.9); NEUTROPHILS % (AUTO) 61.8 % (43.0-81.0); PLATELET COUNT (AUTO) 475 /CMM (150-450); RED BLOOD CELL COUNT(AUTO) 3.42 MIL/uL (4.5-6.0); WHITE BLOOD COUNT (AUTO) 10.5 K/uL (4.3-11.0)
--- NOTE | 2018-12-28 08:00 | NUR ---
MS RN AM NOTES RECEIVED PT IN BED AWAKE AND ALERT, RE-ORIENTED WHERE HE IS AND HOW TO USE THE CALL LIGHT. NO SIGNS OF ANY DISTRESS NOTED. IVF D5NS + 40 MEQKCL INFUSING AT THIS TIME. G-TUBE FEEDING GLUCERNA AT 55ML/HR TOLERATED WELL. HOB ELEVATED.NO ASPIRATION NOTED. NO RESIDUAL NOTED. KEPT HIM WARM AND COMFORTABLE AT ALL TIMES. C DIFF CONTACT ISOLATION PRECAUTIONS IMPLEMENTED AND OBSERVED. WITH RECTAL TUBE INTACT DRAINING MINIMAL SOFT YELLOW FECES.WITH PATTERSON CATH INTACT DRAINING YELLOW URINE OUTPUT. WOUND TX DONE ORDERED.TURNED EVERY TWO HRS.WILL CONTINUE MONITORING. PLACED CALL LIGHT WITHIN REACH.
[2018-12-28 08:41] VITALS: BP 113/84
[2018-12-28] MEDS: DOCUSATE SODIUM LIQ 100 MG/10 ML UDC JT SCH ×2 (09:00→15:54)
[2018-12-28] MEDS: ACETAMINOPHEN 650 MG/20.3 ML UDC JT SCH (09:26)
[2018-12-28] MEDS: ZINC SULFATE 220 MG CAPSULE JT SCH (09:26)
[2018-12-28] MEDS: FAMOTIDINE (20 MG) 20 MG TABLET JT SCH ×2 (09:27→21:32)
[2018-12-28] MEDS: ASCORBIC ACID 500 MG TABLET GT SCH ×2 (09:27→17:25)
[2018-12-28] MEDS: MULTIVIT W/MINERALS 1 TAB TABLET GT SCH (09:27)
[2018-12-28] MEDS: LIPASE/PROTEASE/AMYLASE 1 EACH CAPSULE.DR PO SCH ×3 (09:27→17:26)
[2018-12-28] MEDS: Z GUARD REMEDY 2 OZ OINT TP SCH (09:34)
[2018-12-28] MEDS: PROSOURCE / PROSTAT (PYXIS) 30 ML UDC GT SCH ×2 (09:34→17:25)
[2018-12-28] MEDS: Magnesium 1GM/D5W 100ML PREMIX 100 ML IV SCH ×2 (09:34→10:37)
[2018-12-28] MEDS: POLYVINYL ALCOHOL 15 ML BOTTLE EACHEYE PRN (09:37)
[2018-12-28] MEDS: HYDROGEL DRESSING 90 GM TUBE TP SCH ×2 (09:37→21:43)
[2018-12-28] MEDS: CLOTRIMAZOLE 1% 15 GM TUBE TP SCH ×2 (09:39→17:27)
[2018-12-28] MEDS: Potassium Chloride 40 MEQ in IV D5/ 0.9% NACL 1,000 ML IV PRN (11:52)
--- NOTE | 2018-12-28 13:01 | NUR ---
ON JT FEEDING OF GLUCERNA 1.2 AT 55 ML/HR.WILL START PT ON PUREE WITH THIN LIQUID PER PT/FAMILY REQUEST.DR DESHAWN MCKEON APPROVED.PT PASSED THE SWALLOW EVAL SINCE YESTERDAY.STARTED GIVING PT JUICES AND ICE CHIPS -PT TOLERATED WELL BUT PT WANTED REAL FOOD NOT JUST JUICES/FLUIDS.
--- NOTE | 2018-12-28 13:30 | NUR ---
ATE PUREED FOOD AND CONSUMED 30% SCARED OF GETTING OVERFED DUE TO HIS ONGOING JT FEEDING OF GLUCERNA AT 55 ML/HR TOLERATING WELL.
[2018-12-28 15:56] VITALS: BP 90/53
--- NOTE | 2018-12-28 19:40 | NUR ---
RN INITIAL NOTES: Received rpeort from Marianne Naik Pt in bed, awake, a/o x3, on room air, respirations even and unlabored. iv access patent and flushing well, infusing with ivf as ordered. Pt has rectal tube in placed. Jtube in placed, per report leak much improved. Pt receiving glucerna 1.2 at 55ml/hr. ble offloaded. on kci mattress. s/p sacral wound debridement. Remains on CDIFF isolation, will utilize PPE. Coumadin dc'd due to elevated inr. graf catheter in placed draining into yellow colored urine. safety precautions for fall initiated, call light in reach, will continue monitoring pt.
[2018-12-28 20:00] VITALS: BP 117/72
--- NOTE | 2018-12-28 20:10 | NUR ---
RN notes: abdomen soft to touch with hyperactive bowel sound heard upon auscultation. No residual obtained. Pt receiving glucerna 1.2 at 55 ml/hr. still with minimal leak of yellowish secretions on gtube site. Cleansed with ns pat dry , covered with 4x4 gauze pad to further monitor amount of leak.
[2018-12-28] MEDS: GLUCERNA 1.2 1,000 ML BOTTLE NG PRN (21:34)
[2018-12-28] MEDS: TERAZOSIN HCL 5 MG CAPSULE GT SCH (21:43)
--- NOTE | 2018-12-29 01:01 | NUR ---
rn notes: no ivf available for the pt, pt's receiving d5ns + 40meq kcl, usually the said ivf is prepared by pharmacy and will be brought to the unit, nothing was found on the yellow bin cassette. informed rn medication, faxed order to shaun garza, spoked with shaun nunez stated no ivf available.
[2018-12-29] MEDS: IPRATROPIUM NEB FS 0.5 MG/2.5 ML AMPUL.NEB NEB SCH ×5 (01:10→20:38)
--- NOTE | 2018-12-29 02:00 | NUR ---
rn notes: unable to administer/hang new ivf, ivf not available per rn sup
--- NOTE | 2018-12-29 04:30 | NUR ---
rn notes: bed bath provided to pt, wound care performed, flexiseal bag changed and placed a new bag.
[2018-12-29] MEDS: FERROUS SULFATE UDC 300 MG/5 ML UDC JT SCH ×3 (05:16→20:53)
[2018-12-29] MEDS: CARBIDOPA/LEVODOPA 25/250 MG 1 UDTAB GT SCH ×3 (05:16→20:53)
[2018-12-29] MEDS: METRONIDAZOLE 500MG/ NS 100ML 500 MG in PREMIX 1 EA IV SCH ×3 (05:16→20:53)
[2018-12-29] MEDS: VANCOMYCIN HCL 125 MG/2.5 ML ORAL.SUSP JT SCH ×3 (05:17→17:48)
[2018-12-29] MEDS: MORPHINE SULFATE INJ 2 MG/ML DISP.SYRIN IV PRN ×3 (05:17→15:42)
--- NOTE | 2018-12-29 05:18 | NUR ---
prn morphine: pt c/o 12/18 sacral area wound pain, requesting for pain medication, prn morphine 2mg ivp administered to pt at this time, will continue to monitor and reassess pt
[2018-12-29 06:46] LABS: CARBON DIOXIDE 26 mmol/L (21-32); CHLORIDE 104 mmol/L (98-107); CREATININE 0.6 mg/dL (0.6-1.3); GLUCOSE 104 mg/dL (74-106); MAGNESIUM 1.8 mg/dL (1.8-2.4); PHOSPHORUS 3.4 mg/dL (2.5-4.9); POTASSIUM 4.8 mmol/L (3.5-5.1); SODIUM SERUM 136 mmol/L (136-145); UREA NITROGEN, BLOOD 15 mg/dL (7-18)
--- NOTE | 2018-12-29 06:49 | NUR ---
rn closing notes: pt in bed, awake, remains a/o x3, pt iv access remains patent and flushing well, no s/s of iv infiltration noted. j-tube remains in placed, no residual obtained, receiving glucerna 1.2 at 55ml/hr. minimum leak noted on j-tube site, remains with redness and minimal swelling. abdomen remains soft to touch. graf catheter remains patent and in placed, bag emptied by laborer brush clearing. rectal tube remains in placed. for possible dc today, exit care completed. vs remains stable, needs attended. safety precautions for fall remains engaged, call light in reach, will endorse to day rn for continuity of care.
[2018-12-29 06:53] LABS: BASOPHILS # (AUTO) 0.1 /CMM (0.0-0.2); BASOPHILS % (AUTO) 0.6 % (0.0-2.0); HEMATOCRIT 31 % (39-51); LYMPHOCYTES # (AUTO) 3.2 /CMM (0.8-4.8); LYMPHOCYTES % (AUTO) 28.8 % (20.0-44.0); MEAN CORPUSCULAR HGB CONC 33 g/dl (31.0-36.0); MEAN CORPUSCULAR VOLUME 89 fL (80-96); MONOCYTES # (AUTO) 0.6 /CMM (0.1-1.30); MONOCYTES % (AUTO) 5.5 % (2.0-12.0); NEUTROPHILS # (AUTO) 6.8 /CMM (1.8-8.9); NEUTROPHILS % (AUTO) 61.1 % (43.0-81.0); PLATELET COUNT (AUTO) 479 /CMM (150-450); RED BLOOD CELL COUNT(AUTO) 3.48 MIL/uL (4.5-6.0); WHITE BLOOD COUNT (AUTO) 11.1 K/uL (4.3-11.0)
--- NOTE | 2018-12-29 07:57 | NUR ---
MS RN OPENING NOTES Received Patient resting and watching TV in bed. A/O x 3. VS stable with no acute distress. Breathing even and unlabored on room air with no respiratory distress. Denies pain. Lara Cath in place and operational. Rectal tube in place and operational. J-Tube in place and operational with Glucerna 1.2 running at 55ml/hr. Noted redness and minimal swelling on J-Tube. Will continue to monitor. 20g PIV on RFA clean, dry, intact and flushing well with KCL 40mEq in D5NS at 70ml/hr. Safety precautions in place. Bed locked and set to lowest position with side rails x 2 up. Will continue to monitor.
[2018-12-29 08:43] VITALS: BP 95/58
[2018-12-29] MEDS: MULTIVIT W/MINERALS 1 TAB TABLET GT SCH (08:58)
[2018-12-29] MEDS: ASCORBIC ACID 500 MG TABLET GT SCH ×2 (08:58→17:47)
[2018-12-29] MEDS: LIPASE/PROTEASE/AMYLASE 1 EACH CAPSULE.DR PO SCH ×3 (08:58→17:48)
[2018-12-29] MEDS: FAMOTIDINE (20 MG) 20 MG TABLET JT SCH ×2 (08:59→20:53)
[2018-12-29] MEDS: ACETAMINOPHEN 650 MG/20.3 ML UDC JT SCH (08:59)
[2018-12-29] MEDS: DOCUSATE SODIUM LIQ 100 MG/10 ML UDC JT SCH ×2 (08:59→17:00)
[2018-12-29] MEDS: ZINC SULFATE 220 MG CAPSULE JT SCH (08:59)
[2018-12-29] MEDS: PROSOURCE / PROSTAT (PYXIS) 30 ML UDC GT SCH ×2 (09:03→17:52)
[2018-12-29] MEDS: HYDROGEL DRESSING 90 GM TUBE TP SCH ×2 (09:04→20:55)
[2018-12-29] MEDS: Z GUARD REMEDY 2 OZ OINT TP SCH (09:05)
[2018-12-29] MEDS: CLOTRIMAZOLE 1% 15 GM TUBE TP SCH ×2 (09:05→17:55)
[2018-12-29] MEDS: Potassium Chloride 40 MEQ in IV D5/ 0.9% NACL 1,000 ML IV PRN (09:19)
[2018-12-29 16:25] VITALS: BP 102/61
--- NOTE | 2018-12-29 19:03 | NUR ---
MS RN CLOSING NOTES Patient resting and asleep in bed. A/O x 3. VS stable with no acute distress. Breathing even and unlabored on room air with no respiratory distress. Denies pain. Lara Cath in place and operational with clear yellow output noted. Rectal tube in place and operational. J-Tube in place and operational with Glucerna 1.2 running at 55ml/hr. Noted redness and minimal swelling on J-Tube. Z-guard applied. Will endorse to oncoming shift. 20g PIV on RFA clean, dry, intact and flushing well with KCL 40mEq in D5NS running at 70ml/hr. Safety precautions in place. Bed locked and set to lowest position with side rails x 2 up. All needs rendered at this time. Will endorse plan of care to oncoming shift.
[2018-12-29 20:17] VITALS: BP 131/61
--- NOTE | 2018-12-29 20:17 | NUR ---
RN MS OPENING NOTES RECEIVED PATIENT RESTING IN BED. EASILY AROUSABLE. ALERT AND ORIENTED X2, VERBALLY RESPONSIVE, ABLE TO MAKE NEEDS KNOWN. BREATHING EVEN AND UNLABORED. NO SOB NOTED. TOLERATING ROOM AIR. NO S/S OF PAIN OR DISCOMFORT. NO FACIAL GRIMACING. IV ON RIGHT FOREARM INTACT AND PATENT WITH IVF INFUSING. SKIN DRY AND WARM TO TOUCH. PATIENT NOTED WITH PATTERSON CATH, INTACT AND DRAINING WELL. PATIENT ALSO ON GTUBE GLUCERNA AT 55ML/HR. TOLERATING WELL WITH NO RESIDUAL NOTED. PATIENT WITH REDNESS ON GTUBE SITE WITH VERY MINIMAL LEAKAGE. ZGUARD APPLIED WITH 4X4 GAUZE. PATIENT WITH FLEXISEAL DUE TO LOOSE BM, +FOR CDIFF. REMAINS ON CONTACT ISOLATION. ALL OTHER NEEDS ATTENDED TO. SAFETY MEASURES IN PLACE. CALL LIGHT WITHIN REACH. WILL CONTINUE TO MONITOR.
[2018-12-29] MEDS: TERAZOSIN HCL 5 MG CAPSULE GT SCH (21:00)
[2018-12-30] MEDS: VANCOMYCIN HCL 125 MG/2.5 ML ORAL.SUSP JT SCH ×3 (00:22→12:34)
[2018-12-30] MEDS: IPRATROPIUM NEB FS 0.5 MG/2.5 ML AMPUL.NEB NEB SCH ×2 (02:12→08:00)
--- NOTE | 2018-12-30 03:02 | NUR ---
RN MS NOTES NO IVF AVAILABLE FOR PATIENT. CURRENTLY RECEIVING D5NS + KCL 40MEQ. IVF WITH KCL USUALLY PREPARED BY PHARMACY AND BROUGHT UP TO THE UNIT BUT NOTHING WAS FOUND. INFORMED ASSISTANT COMMISSIONER ROLY, BUT PER ROLY, NO IVF AVAILABLE.
[2018-12-30] MEDS: CARBIDOPA/LEVODOPA 25/250 MG 1 UDTAB GT SCH ×2 (05:03→12:34)
[2018-12-30] MEDS: METRONIDAZOLE 500MG/ NS 100ML 500 MG in PREMIX 1 EA IV SCH ×2 (05:03→12:34)
[2018-12-30] MEDS: FERROUS SULFATE UDC 300 MG/5 ML UDC JT SCH ×2 (05:03→12:34)
--- NOTE | 2018-12-30 05:30 | NUR ---
RN MS NOTES PATIENT CLEANED. DRESSINGS CHANGED.
--- NOTE | 2018-12-30 06:56 | NUR ---
RN MS CLOSING NOTES PATIENT RESTING IN BED. NO ACUTE CHANGES THROUGHOUT SHIFT. BREATHING EVEN AND UNLABORED. NO SOB NOTED. TOLERATING ROOM AIR. NO S/S OF PAIN OR DISCOMFORT. NO FACIAL GRIMACING. IV ON RIGHT FOREARM INTACT AND PATENT WITH IVF INFUSING. PATIENT WITH PATTERSON CATH, INTACT AND DRAINING WELL. PATIENT ALSO ON GTUBE GLUCERNA AT 55ML/HR. TOLERATING WELL WITH NO RESIDUAL NOTED. PATIENT WITH FLEXISEAL FOR LOOSE BM, REMAINS ON CONTACT ISOLATION. KEPT CLEAN DRY AND COMFORTABLE. DRESSINGS CLEAN DRY AND INTACT. ALL OTHER NEEDS ATTENDED TO. SAFETY MEASURES IN PLACE. CALL LIGHT WITHIN REACH. WILL ENDORSE TO ONCOMING NURSE FOR MARLEN.
[2018-12-30 08:00] VITALS: BP 102/64
--- NOTE | 2018-12-30 08:00 | NUR ---
MS RN OPENING NOTES Received Patient resting and asleep in bed. A/O x 3. VS stable with no acute distress. Breathing even and unlabored on room air with no respiratory distress. Patient states 8/10 pain on SACRAL AREA. Will intervene as ordered. Lara Cath in place and operational with clear yellow output noted. Rectal tube in place and operational. J-Tube in place and operational with Glucerna 1.2 running at 55ml/hr. Noted redness and minimal swelling on J-Tube. Applied Z-guard and dressing. Will continue to monitor. 20g PIV on RFA clean, dry, intact and flushing well with KCL 40mEq in D5NS at 70ml/hr. Safety precautions in place. Bed locked and set to lowest position with side rails x 2 up. Will continue to monitor.
[2018-12-30] MEDS: MULTIVIT W/MINERALS 1 TAB TABLET GT SCH (08:52)
[2018-12-30] MEDS: ACETAMINOPHEN 650 MG/20.3 ML UDC JT SCH (08:52)
[2018-12-30] MEDS: ASCORBIC ACID 500 MG TABLET GT SCH (08:52)
[2018-12-30] MEDS: FAMOTIDINE (20 MG) 20 MG TABLET JT SCH (08:52)
[2018-12-30] MEDS: LIPASE/PROTEASE/AMYLASE 1 EACH CAPSULE.DR PO SCH ×2 (08:52→12:34)
[2018-12-30] MEDS: ZINC SULFATE 220 MG CAPSULE JT SCH (08:53)
[2018-12-30] MEDS: DOCUSATE SODIUM LIQ 100 MG/10 ML UDC JT SCH (08:53)
[2018-12-30] MEDS: PROSOURCE / PROSTAT (PYXIS) 30 ML UDC GT SCH (08:59)
[2018-12-30] MEDS: CLOTRIMAZOLE 1% 15 GM TUBE TP SCH (09:01)
[2018-12-30] MEDS: HYDROGEL DRESSING 90 GM TUBE TP SCH (09:01)
[2018-12-30] MEDS: Z GUARD REMEDY 2 OZ OINT TP SCH (09:03)
[2018-12-30] MEDS: MORPHINE SULFATE INJ 2 MG/ML DISP.SYRIN IV PRN (09:08)
[2018-12-30 11:44] LABS: CALCIUM, SERUM 8.2 mg/dL (8.5-10.1); CARBON DIOXIDE 24 mmol/L (21-32); CHLORIDE 98 mmol/L (98-107); CREATININE 0.7 mg/dL (0.6-1.3); GLUCOSE 100 mg/dL (74-106); POTASSIUM 4.5 mmol/L (3.5-5.1); SODIUM SERUM 130 mmol/L (136-145); UREA NITROGEN, BLOOD 15 mg/dL (7-18)
--- NOTE | 2018-12-30 13:41 | NUR ---
MS ORCHID GROWER NOTES Patient discharged for [facility] at this time. Patient in stable condition. VS stable with no acute distress. Breathing even and unlabored on room air with no respiratory distress. Patient stated tolerable pain on SACRAL AREA. Skin assessment done per protocol. Lara Cath in place and operational. JTube in place and operational. 20g PIV on RFA clean, dry, intact, and flushing well. Medication reconciliation and discharge orders reviewed and explained to Patient. Patient verbalized understanding. Unable to sign paperwork due to contractures. All belongings with Patient. Patient will follow up with MD at SNF and resume care as ordered. Report given to Dalila ANTOINE. Patient picked up by [facility].
== END 2018-12-30 13:43 | DRG 344 ==
LOC: ER 18:53 → MED 20:05 → UNDODISIN 12-29 13:33
PROVIDERS: ADMIT Internal Medicine Nephrology; ATTEND Internal Medicine Nephrology
PROC: 0DPD3UZ Removal of Feeding Device from Lower Intestinal Tract, Percutaneous Approach (ICD-10-PCS; principal; 2018-12-23)
PROC: 0DHA3UZ Insertion of Feeding Device into Jejunum, Percutaneous Approach (ICD-10-PCS; 2018-12-23)
PROC: 0KBP0ZZ Excision of Left Hip Muscle, Open Approach (ICD-10-PCS; 2018-12-25)
PROC: 0KBN0ZZ Excision of Right Hip Muscle, Open Approach (ICD-10-PCS; 2018-12-25)
DX: K94.13 Enterostomy malfunction (principal); L89.154 Pressure ulcer of sacral region, stage 4; A41.4 Sepsis due to anaerobes; K86.1 Other chronic pancreatitis; A04.72 Enterocolitis due to Clostridium difficile, not specified as recurrent; N39.0 Urinary tract infection, site not specified; E87.0 Hyperosmolality and hypernatremia; J98.11 Atelectasis; Y84.9 Medical procedure, unspecified as the cause of abnormal reaction of the patient, or of later complication, without mention of misadventure at the time of the procedure; Y82.9 Unspecified medical devices associated with adverse incidents; Y92.009 Unspecified place in unspecified non-institutional (private) residence as the place of occurrence of the external cause; G20 Parkinson's disease; N31.9 Neuromuscular dysfunction of bladder, unspecified; L30.4 Erythema intertrigo; D64.9 Anemia, unspecified; Z86.718 Personal history of other venous thrombosis and embolism; Z86.711 Personal history of pulmonary embolism; Z79.01 Long term (current) use of anticoagulants; Z74.01 Bed confinement status; R13.10 Dysphagia, unspecified; N40.0 Benign prostatic hyperplasia without lower urinary tract symptoms; M24.571 Contracture, right ankle; M24.572 Contracture, left ankle; T19 Foreign body in genitourinary tract; X58.XXXS Exposure to other specified factors, sequela; I10 Essential (primary) hypertension; Z79.4 Long term (current) use of insulin; Z79.899 Other long term (current) drug therapy; M24.541 Contracture, right hand
CPT/HCPCS: 36415; 71045-TC; 74018; 80048-TC; 83735-TC; 84100-TC; 85025-TC; 85610-TC; 85730-TC; 87081-TC; 92526; 92611-TC; A4216; A6248; A6253; A6403; A6407; G0378; J1815; J2270; J3475; J3480; J3490; J7042; Q0162; Q9963

== ENCOUNTER 2019-01-27 10:21 | Inpatient (IN) | payer OTHER, MEDICARE ==
[~2019-01-27] VITALS: Ht 172.7 cm; Wt 63.5 kg
[~2019-01-27 10:21] MED LIST: ACET-2605 JT; ACET-868 JT; ACET650S26 JT; AMIN30LI2 JT; ARGI1POW13 JT; CARB-94 JT; DOCU50LI JT; FAMO20TA8 JT; FERR300L JT; INSU100V3 SQ; IPRA3AMP23 IH; LIPA1CAP8 JT; LOPE2TAB25 JT; MAGN400O6 JT; METR500P3 IV; MULT1TAB73 JT; NUT.237L30 JT; ONDA4TAB5 JT; POLY15DR40 EACHEYE; TERA5CAP4 JT; VANC125C11 JT; VIT500LI JT; ZINC220C6 JT
--- NOTE | 2019-01-27 10:30 | NUR ---
MYRTLE 78 YEAR OLD MALE, FROM SNF ([facility]), FOR J/G TUBE REPLACEMENT, POSSIBLE ON CONTACT ISO FOR C-DIFF. ALERT AND ORIENTED X2, BREATHING EVEN AND UNLABORED WITH NO DISTRESS NOTED. ON CONITNUOUS O2 2LPM VIA NC. SKIN WARM TO TOUCH AND INTACT. AWAITING TO BE SEEN BY
--- NOTE | 2019-01-27 10:55 | NUR ---
X-RAY TECH AT BEDSIDE
[2019-01-27 10:59] LABS: BASOPHILS % (AUTO) 0.1 % (0.0-2.0); EOSINOPHILS % (AUTO) 0.3 % (0.0-6.0); HEMATOCRIT 32 % (39-51); HEMOGLOBIN 10.6 g/dL (13.5-17.5); LYMPHOCYTES # (AUTO) 2.8 /CMM (0.8-4.8); MEAN CORPUSCULAR HGB CONC 33 g/dl (31.0-36.0); MEAN CORPUSCULAR VOLUME 86 fL (80-96); MONOCYTES # (AUTO) 0.8 /CMM (0.1-1.30); MONOCYTES % (AUTO) 4.1 % (2.0-12.0); NEUTROPHILS # (AUTO) 16.6 /CMM (1.8-8.9); NEUTROPHILS % (AUTO) 81.5 % (43.0-81.0); PLATELET COUNT (AUTO) 545 /CMM (150-450); RED BLOOD CELL COUNT(AUTO) 3.75 MIL/uL (4.5-6.0); WHITE BLOOD COUNT (AUTO) 20.4 K/uL (4.3-11.0)
[2019-01-27 11:06] LABS: CALCIUM, SERUM 8.9 mg/dL (8.5-10.1); CARBON DIOXIDE 31 mmol/L (21-32); CHLORIDE 98 mmol/L (98-107); CREATININE 0.8 mg/dL (0.6-1.3); GLUCOSE 139 mg/dL (74-106); POTASSIUM 4.2 mmol/L (3.5-5.1); SODIUM SERUM 135 mmol/L (136-145); UREA NITROGEN, BLOOD 20 mg/dL (7-18)
[2019-01-27 11:21] LABS: ALANINE AMINOTRANSFERASE 21 U/L (12-78); ALBUMIN 2.1 g/dL (3.4-5.0); ALKALINE PHOSPHATASE 115 U/L (46-116); ASPARTATE AMINOTRANSFERASE 17 U/L (15-37); BILIRUBIN,DIRECT 0.1 mg/dL (0.0-0.2); BILIRUBIN,TOTAL 0.3 mg/dL (0.2-1.0)
[2019-01-27] MEDS ORDERED: VANCOMYCIN 1 GM in IV D5W 250 ML IV ONE (11:30)
[2019-01-27] MEDS ORDERED: PIPERACILLIN /TAZOBACTAM 3.375 G in IV D5W 50 ML IV ONE (11:30)
[2019-01-27 11:51] LABS: APPEARANCE,URINE Slightly Cloudy (CLEAR); BILIRUBIN,URINE Negative (NEGATIVE); BLOOD, URINE Small Ery/uL (NEGATIVE); COLOR,URINE Yellow (YELLOW); KETONES,URINE Negative (NEGATIVE); LEUKOCYTE ESTERASE ,URINE Moderate (NEGATIVE); NITRITE, URINE Positive (NEGATIVE); PH,URINE 5.5 (5.0-8.0); PROTEIN,URINE 30 mg/dl (NEGATIVE); UGLUCOSE Negative (NEGATIVE); UROBILINOGEN,URINE 0.2 EU/dL (0.2)
[2019-01-27 12:02] LABS: BACTERIA,URINE Moderate /HPF (None Seen); SQUAMOUS EPITHELIAL CELL,UR Few /HPF (None Seen); WBC,URINE 80-100 /HPF (0-3)
--- NOTE | 2019-01-27 12:48 | NUR ---
PATIENT WILL TRANSFERRED UPSTAIRS TO ROOM 321. REPORT GIVEN TO TRIP
[2019-01-27 13:00] VITALS: BP 113/67
--- NOTE | 2019-01-27 13:00 | NUR ---
Patient admitted to [facility], arrived via gurney, awake A/O x1-2, able to make needs known, unable to ambulate. B/L LE rigid. Breathing unlabored and even , on 2L via NC saturating above 95%, VS are stable , afebrile. Skin inspected: multiple skin issues and open wound sacral aria.Patient came with displaced G-tube: f/c was inserted in stoma at facility. Pictures are taken and placed in patients's chart: wound consult ordered. IV line to the RFA g 20 intact and patent , flushing well. 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 Patient was recently on Flagyl at [facility]. Patient has no belongings. Patient oriented to room; reinforcement needed. Safety measures implemented: bed in low and locked position, HOB elevated, side rails up x3. Call light within reach. Will inform Dr. Anna.
--- NOTE | 2019-01-27 13:45 | NUR ---
Paged Dr. Anna, awaiting for adm. orders.
--- NOTE | 2019-01-27 14:15 | NUR ---
received order from NS 0.9% 50ml/hr. NPO
[2019-01-27] MEDS ORDERED: IV NS 0.9% 1,000 ML BAG IV PRN (16:30)
[2019-01-27] MEDS: IV NS 0.9% 1,000 ML IV PRN (17:02)
[2019-01-27] MEDS ORDERED: ACETAMINOPHEN 650 MG/20.3 ML UDC JT PRN ×2 (18:30→18:44)
[2019-01-27] MEDS ORDERED: Medication Not On Formulary EA (Ipratropium/Albuterol Sulfate (Duoneb 2.5-0.5 Mg/3 Ml So IH PRN (18:30)
[2019-01-27] MEDS ORDERED: Z GUARD REMEDY 2 OZ OINT TP PRN (18:30)
[2019-01-27] MEDS ORDERED: HYDROCODONE/APAP 5/325MG 1 EACH TABLET GT PRN (18:30)
[2019-01-27] MEDS ORDERED: Medication Not On Formulary EA (Loperamide Hcl (Loperamide) 2 MG) JT PRN (18:30)
[2019-01-27] MEDS ORDERED: ONDANSETRON HCL/PF 4 MG/2 ML VIAL IVP PRN (18:30)
[2019-01-27] MEDS ORDERED: ACETAMINOPHEN 325 MG TABLET PO PRN ×2 (18:30→18:44)
[2019-01-27] MEDS ORDERED: Medication Not On Formulary EA (Ondansetron Hcl (Zofran) 4 MG) JT PRN (18:30)
[2019-01-27] MEDS ORDERED: MAGNESIUM HYDROXIDE 30 ML UDC PO PRN (18:30)
[2019-01-27] MEDS ORDERED: ACETAMINOPHEN 325 MG TABLET MC PRN (18:30)
[2019-01-27] MEDS ORDERED: ZOLPIDEM TARTRATE 5 MG TABLET GT PRN (18:30)
[2019-01-27] MEDS ORDERED: MAGNESIUM HYDROXIDE 30 ML UDC JT PRN (18:30)
[2019-01-27] MEDS ORDERED: LOPERAMIDE HCL UDC(2 MG/10 ML) 2 MG/10 ML UDC GT PRN (18:44)
--- NOTE | 2019-01-27 18:47 | NUR ---
requested F/C insertion. Ok for F/C per . Will endorse to next shift for MARLEN
[2019-01-27] MEDS ORDERED: FEE PK DOSING 1 MIN EA MC ONE (18:58)
[2019-01-27] MEDS ORDERED: ACETAMINOPHEN 650 MG/20.3 ML UDC PO PRN (19:00)
[2019-01-27] MEDS ORDERED: ALBUTEROL FS 2.5 MG/3 ML VIAL.NEB NEB PRN (19:00)
[2019-01-27] MEDS ORDERED: IPRATROPIUM NEB FS 0.5 MG/2.5 ML AMPUL.NEB NEB PRN (19:00)
[2019-01-27] MEDS ORDERED: POLYVINYL ALCOHOL/POVIDONE 0.4 ML DROPERETTE EACHEYE PRN (19:00)
[2019-01-27] MEDS ORDERED: LOPERAMIDE HCL UDC 2 MG/15 ML LIQUID GT PRN (19:01)
[2019-01-27 20:00] VITALS: BP 107/66
[2019-01-27] MEDS: METRONIDAZOLE 500MG/ NS 100ML 500 MG in PREMIX 1 EA IV SCH (20:01)
--- NOTE | 2019-01-27 20:14 | NUR ---
MS RN NOTES RECEIVED PATIENT ASLEEP IN BED WITH NO DISTRESS NOTED. CALL LIGHT WITHIN REACH. PERIPHERAL LINE INTACT AND PATENT. DRESSING OVER JT STOMA INTACT, CLEAN, AND DRY. BED IN LOW LOCK SETTING. BED ALARM ON AND FUNCTIONING PROPERLY. ALL BELONGINGS KEPT NEAR BEDSIDE. WILL CONTINUE TO MONITOR.
[2019-01-27] MEDS: CARBIDOPA/LEVODOPA 25/250 MG 1 UDTAB GT SCH (21:00)
[2019-01-27] MEDS: FAMOTIDINE (20 MG) 20 MG TABLET JT SCH (21:00)
[2019-01-27] MEDS: FERROUS SULFATE UDC 300 MG/5 ML UDC JT SCH (21:00)
[2019-01-27] MEDS ORDERED: FLAGYL/NS RTU 500 MG/100 ML PIGGYBACK IV SCH (21:00)
--- NOTE | 2019-01-27 21:00 | NUR ---
SECOND PERIPHERAL LINE IN LFA #22 GAUGE PLACED D/T MULTIPLE IV ATB REGIMEN. TOLERATED WELL, NO ACTIVE BLEEDING NOTED. FC 16FR PLACED ORDERED AND TOLERATED WELL, DRAINING YELLOW CLEAR URINE
[2019-01-27] MEDS: TERAZOSIN HCL 5 MG CAPSULE GT SCH (21:43)
[2019-01-27] MEDS: PIPERACILLIN /TAZOBACTAM 3.375 G in IV D5W 100 ML IV SCH (21:43)
[2019-01-28] MEDS ORDERED: VANCOMYCIN HCL 125 MG JT SCH
[2019-01-28] MEDS ORDERED: PIPERACILLIN /TAZOBACTAM 2.255 G in IV D5W 50 ML IV SCH ×2
[2019-01-28] MEDS: VANCOMYCIN 1 GM in IV D5W 250 ML IV SCH ×3 (00:40→23:38)
--- NOTE | 2019-01-28 02:01 | NUR ---
PER MAURICIO HEARD, REQUESTING TO SPEAK WITH CM REGARDING CHANGING SNF PLACEMENT. CONTACT NUMBER [phone]
[2019-01-28] MEDS: CARBIDOPA/LEVODOPA 25/250 MG 1 UDTAB GT SCH ×3 (04:38→20:59)
[2019-01-28] MEDS: PIPERACILLIN /TAZOBACTAM 3.375 G in IV D5W 100 ML IV SCH ×3 (04:38→20:51)
[2019-01-28] MEDS: METRONIDAZOLE 500MG/ NS 100ML 500 MG in PREMIX 1 EA IV SCH ×3 (04:38→20:47)
[2019-01-28] MEDS: FERROUS SULFATE UDC 300 MG/5 ML UDC JT SCH ×3 (04:39→20:59)
[2019-01-28] MEDS: VANCOMYCIN HCL 125 MG/2.5 ML ORAL.SUSP JT SCH ×5 (06:00→23:39)
[2019-01-28 06:25] LABS: BASOPHILS # (AUTO) 0.1 /CMM (0.0-0.2); BASOPHILS % (AUTO) 0.5 % (0.0-2.0); EOSINOPHILS % (AUTO) 1.8 % (0.0-6.0); HEMATOCRIT 28 % (39-51); LYMPHOCYTES # (AUTO) 2.5 /CMM (0.8-4.8); LYMPHOCYTES % (AUTO) 19.2 % (20.0-44.0); MEAN CORPUSCULAR HGB CONC 33 g/dl (31.0-36.0); MEAN CORPUSCULAR VOLUME 87 fL (80-96); MONOCYTES # (AUTO) 0.9 /CMM (0.1-1.30); MONOCYTES % (AUTO) 6.5 % (2.0-12.0); NEUTROPHILS # (AUTO) 9.5 /CMM (1.8-8.9); PLATELET COUNT (AUTO) 459 /CMM (150-450); RED BLOOD CELL COUNT(AUTO) 3.18 MIL/uL (4.5-6.0); WHITE BLOOD COUNT (AUTO) 13.2 K/uL (4.3-11.0)
--- NOTE | 2019-01-28 06:28 | NUR ---
MS RN NOTES PATIENT ASLEEP IN BED WITH NO DISTRESS NOTED. CALL LIGHT WITHIN REACH. NO C/O PAIN OR DISCOMFORT. PERIPHERAL LINE INTACT AND PATENT. ALL DUE MEDS GIVEN ORDERED WITH NO ASE NOTED. FC INTACT, PATENT, AND DRAINED 450ML DARK YELLOW CLEAR URINE. BED IN LOW LOCK SETTING. ALL BELONGINGS KEPT NEAR BEDSIDE. WILL CONTINUE TO MONITOR.
[2019-01-28 06:40] LABS: CALCIUM, SERUM 8.1 mg/dL (8.5-10.1); CARBON DIOXIDE 26 mmol/L (21-32); CHLORIDE 100 mmol/L (98-107); CREATININE 0.6 mg/dL (0.6-1.3); GLUCOSE 146 mg/dL (74-106); MAGNESIUM 1.8 mg/dL (1.8-2.4); PHOSPHORUS 4.1 mg/dL (2.5-4.9); POTASSIUM 3.6 mmol/L (3.5-5.1); SODIUM SERUM 135 mmol/L (136-145); UREA NITROGEN, BLOOD 15 mg/dL (7-18)
[2019-01-28 07:31] LABS: CHOLESTEROL 86 mg/dL (<200); HDL CHOLESTEROL 27 mg/dL (40-60); LDL 47 mg/dL (0-99); TRIGLYCERIDES 123 mg/dL (30-150)
--- NOTE | 2019-01-28 07:35 | NUR ---
MS RN OPENING NOTES RECEIVED PT LAYING IN BED, RESTING COMFORTABLY. PT IS A/O X1-2, AFEBRILE. RESPIRATIONS ARE EVEN AND UNLABORED, NOT IN ANY ACUTE DISTRESS NOTED. NO FACIAL GRIMACING OR MOANING. IV ACCESS TO RFA/LFA INTACT, NO INFILTRATION NOTED. DRESSING KEPT CLEAN AND DRY. SAFETY MEASURES ARE IN PLACE. INSTRUCTED PT TO USE CALL LIGHT WHEN ASSISTANCE IS NEEDED, CALL LIGHT IS LEFT WITHIN REACH. WILL MONITOR THROUGHOUT SHIFT FOR CONTINUITY OF CARE.
[2019-01-28 08:00] VITALS: BP 94/64
[2019-01-28] MEDS: FAMOTIDINE (20 MG) 20 MG TABLET JT SCH ×2 (09:00→20:59)
[2019-01-28] MEDS ORDERED: Medication Not On Formulary EA (Amino Acids/Protein Hydrolys (Pro-Stat Liquid) 30 ML) JT SCH (09:00)
[2019-01-28] MEDS ORDERED: Medication Not On Formulary EA (Multivitamins 1 TAB) JT SCH (09:00)
[2019-01-28] MEDS ORDERED: ACETAMINOPHEN 650 MG/20.3 ML UDC JT SCH (09:00)
[2019-01-28] MEDS: PROSOURCE / PROSTAT (PYXIS) 30 ML UDC GT SCH ×2 (09:00→17:28)
[2019-01-28] MEDS: ASCORBIC ACID 500 MG TABLET GT SCH ×2 (09:00→17:28)
[2019-01-28] MEDS: DOCUSATE SODIUM LIQ 100 MG/10 ML UDC JT SCH ×2 (09:00→17:28)
[2019-01-28] MEDS: ACETAMINOPHEN 650 MG/20.3 ML UDC JT SCH (09:00)
[2019-01-28] MEDS ORDERED: Medication Not On Formulary EA (Arginine/Ascorbate Sod/Vite AC (Arginaid Powder) 1 EACH) JT SCH (09:00)
[2019-01-28] MEDS: MULTIVIT W/MINERALS 1 TAB TABLET GT SCH (09:00)
[2019-01-28] MEDS: ZINC SULFATE 220 MG CAPSULE JT SCH (09:00)
--- NOTE | 2019-01-28 09:09 | NUR ---
MS RN NOTES-- PT WAS SEEN AND EXAMINED BY DR. WREN W/ ORDERS FOR PROCEDURE OF PEG/J TUBE THIS AFTERNOON AND FOR PT TO REMAIN NPO WELL NOTHING BY [facility]. WILL OBTAIN CONSENT FROM POA.
--- NOTE | 2019-01-28 09:30 | NUR ---
MS RN NOTES-- RECEIVED CONSENT FOR PEGJTUBE PLACEMENT FROM FÉLIX LARA WITNESSED BY DAMIAN ROPER.
--- NOTE | 2019-01-28 10:04 | NUR ---
MS RN NOTES-- PT P/U BY OR VIA GURNEY IN STABLE CONDITION FOR PROCEDURE.
--- NOTE | 2019-01-28 11:15 | NUR ---
MS RN NOTES-- PT CAME BACK FROM OR IN STABLE CONDITION VIA VIRIRCHANTELL. PER OR NURSE, SURGEON WAS NOT ABLE TO DO PROCEDURE, NOTIFIED FÉLIX MARTÍNEZ. PER DR. WREN, TO RESUME PRE OP ORDERS.
[2019-01-28 16:00] VITALS: BP 105/76
[2019-01-28] MEDS: DAKINS QUARTER STRENGTH (0.125%) 480 ML BOTTLE TOP SCH (16:00)
--- NOTE | 2019-01-28 16:30 | NUR ---
MS RN NOTES-- CALLED PHARMACY, SPOKE WITH INDERJIT DAVE AND WILL SEND UP.
--- NOTE | 2019-01-28 17:45 | NUR ---
MS RN NOTES-- CALLED PHARMACY, SPOKE WITH SUNDAY RE: MAURA REYNA. PER SUNDAY, WILL SEND UP.
--- NOTE | 2019-01-28 18:08 | NUR ---
MS RN NOTES-- DAKINS SOLUTION NOT AVAILABEL AT THIS TIME. PROVIDED WOUND CARE WITH WET TO DRY DRESSING.
--- NOTE | 2019-01-28 18:48 | NUR ---
MS RN CLOSING NOTES ALL DUE MEDS GIVEN, NEEDS MET AND RENDERED. PT IS A/O X3, AFEBRILE. RESPIRATIONS ARE EVEN AND UNLABORED, NOT IN ANY ACUTE DISTRESS NOTED. PT DENIES ANY PAIN AT THIS TIME, NO C/O SOB, N/V. IV SITE TO RFA/LFA INTACT, NO INFILTRATION NOTED. DRESSINGS KEPT CLEAN AND DRY. SAFETY MEASURES ARE IN PLACE. CONTACT PRECAUTIONS TAKEN. INSTRUCTED PT TO USE CALL LIGHT WHEN ASSISTANCE IS NEEDED, CALL LIGHT IS LEFT WITHIN REACH. WILL ENDORSE TO NEXT SHIFT FOR CONTINUITY OF CARE.
--- NOTE | 2019-01-28 19:05 | NUR ---
MS RN OPENING NOTES Received patient sleeping in bed, easy to arouse. Breathing even and unlabored. Not in any distress. On O2 via nasal cannula. No distress noted. Lara catheter in place, draining dark yellow urine. IVF running at 50mL/hr and IV antibiotic running at 25mL/hr. Isolation precautions maintained. Safety measures in place; call light within reach. Bed in low, locked position. Will continue to monitor accordingly
[2019-01-28] MEDS ORDERED: VITAMINS A AND D 56.7 GM TUBE TP PRN (20:00)
[2019-01-28] MEDS: IV NS 0.9% 1,000 ML IV PRN (20:34)
[2019-01-28 20:48] VITALS: BP 107/60
[2019-01-28] MEDS: TERAZOSIN HCL 5 MG CAPSULE GT SCH (21:00)
--- NOTE | 2019-01-28 23:40 | NUR ---
MS RN NOTES VANCO TROUGH 22. HELD IV VANCO AT THIS TIME.
[2019-01-29] MEDS: METRONIDAZOLE 500MG/ NS 100ML 500 MG in PREMIX 1 EA IV SCH ×3 (04:36→20:46)
[2019-01-29] MEDS: PIPERACILLIN /TAZOBACTAM 3.375 G in IV D5W 100 ML IV SCH ×2 (04:41→13:10)
[2019-01-29] MEDS: CARBIDOPA/LEVODOPA 25/250 MG 1 UDTAB GT SCH ×4 (05:07→21:00)
[2019-01-29] MEDS: VANCOMYCIN HCL 125 MG/2.5 ML ORAL.SUSP JT SCH ×4 (05:07→23:10)
[2019-01-29] MEDS: FERROUS SULFATE UDC 300 MG/5 ML UDC JT SCH ×4 (05:07→21:00)
[2019-01-29 06:26] LABS: BASOPHILS % (AUTO) 0.5 % (0.0-2.0); EOSINOPHILS % (AUTO) 3.7 % (0.0-6.0); HEMATOCRIT 26 % (39-51); HEMOGLOBIN 8.4 g/dL (13.5-17.5); LYMPHOCYTES # (AUTO) 2.5 /CMM (0.8-4.8); LYMPHOCYTES % (AUTO) 29.8 % (20.0-44.0); MEAN CORPUSCULAR HGB CONC 33 g/dl (31.0-36.0); MEAN CORPUSCULAR VOLUME 87 fL (80-96); MONOCYTES # (AUTO) 0.6 /CMM (0.1-1.30); MONOCYTES % (AUTO) 7.1 % (2.0-12.0); NEUTROPHILS % (AUTO) 58.9 % (43.0-81.0); PLATELET COUNT (AUTO) 470 /CMM (150-450); RED BLOOD CELL COUNT(AUTO) 2.95 MIL/uL (4.5-6.0); WHITE BLOOD COUNT (AUTO) 8.5 K/uL (4.3-11.0)
--- NOTE | 2019-01-29 06:33 | NUR ---
MS RN CLOSING NOTES Patient still resting in bed, easy to arouse. Breathing even and unlabored. Not in any distress. On O2 via nasal cannula. Peripheral IV infusing at 75mL. All due meds given as ordered. Patient refused dressing change. Isolation precaution maintained. Safety measures in place; call light within reach, bed in low, locked position. Will endorse MARLEN to oncoming RN Addendum: 01/29/19 at 0634 by FILIPE ORTIZ RN ADDITIONAL NOTES Lara catheter in place, drained 700mL of clear yellow urine
[2019-01-29 06:58] LABS: ALANINE AMINOTRANSFERASE 13 U/L (12-78); ALBUMIN 1.7 g/dL (3.4-5.0); ALKALINE PHOSPHATASE 71 U/L (46-116); ASPARTATE AMINOTRANSFERASE 12 U/L (15-37); BILIRUBIN,TOTAL 0.2 mg/dL (0.2-1.0); CALCIUM, SERUM 8.1 mg/dL (8.5-10.1); CARBON DIOXIDE 28 mmol/L (21-32); CHLORIDE 102 mmol/L (98-107); CREATININE 0.6 mg/dL (0.6-1.3); GLUCOSE 94 mg/dL (74-106); MAGNESIUM 1.7 mg/dL (1.8-2.4); PHOSPHORUS 3.8 mg/dL (2.5-4.9); POTASSIUM 3.4 mmol/L (3.5-5.1); SODIUM SERUM 136 mmol/L (136-145); TOTAL PROTEIN, SERUM 7.3 g/dL (6.4-8.2); UREA NITROGEN, BLOOD 11 mg/dL (7-18)
[2019-01-29 07:18] LABS: IRON, SERUM 29 ug/dl (50-175); TOTAL IRON BINDING CAPACITY 113 ug/dl (250-450)
[2019-01-29 07:36] LABS: FERRITIN 2280 ng/mL (8-388)
--- NOTE | 2019-01-29 07:41 | NUR ---
MS RN OPENING NOTES RECEIVED PT LAYING IN BED, RESTING COMFORTABLY. PT IS A/O X3-4, AFEBRILE. RESPIRATIONS ARE EVEN AND UNLABORED, NOT IN ANY ACUTE DISTRESS NOTED. DENIES ANY PAIN AT THIS TIME, NO C/O SOB, N/V. IV ACCESS TO RFA/LFA INTACT, NO INFILTRATION NOTED. DRESSING KEPT CLEAN AND DRY. SAFETY MEASURES ARE IN PLACE. INSTRUCTED PT TO USE CALL LIGHT WHEN ASSISTANCE IS NEEDED, CALL LIGHT IS LEFT WITHIN REACH. WILL MONITOR THROUGHOUT SHIFT FOR CONTINUITY OF CARE.
[2019-01-29 08:00] VITALS: BP 99/68
[2019-01-29] MEDS: ACETAMINOPHEN 650 MG/20.3 ML UDC JT SCH (08:42)
[2019-01-29] MEDS: FAMOTIDINE (20 MG) 20 MG TABLET JT SCH ×3 (08:42→21:00)
[2019-01-29] MEDS: DAKINS QUARTER STRENGTH (0.125%) 480 ML BOTTLE TOP SCH (08:42)
[2019-01-29] MEDS: MULTIVIT W/MINERALS 1 TAB TABLET GT SCH (08:42)
[2019-01-29] MEDS: ASCORBIC ACID 500 MG TABLET GT SCH ×2 (08:42→17:17)
[2019-01-29] MEDS: DOCUSATE SODIUM LIQ 100 MG/10 ML UDC JT SCH ×2 (08:42→17:17)
[2019-01-29] MEDS: ZINC SULFATE 220 MG CAPSULE JT SCH (08:42)
[2019-01-29] MEDS: PROSOURCE / PROSTAT (PYXIS) 30 ML UDC GT SCH ×2 (08:42→17:17)
[2019-01-29] MEDS ORDERED: POTASSIUM CHLORIDE 20 MEQ TAB.PRT.SR PO SCH (09:30)
[2019-01-29] MEDS: Magnesium 1GM/D5W 100ML PREMIX 100 ML IV SCH ×2 (09:56→11:00)
[2019-01-29] MEDS ORDERED: VANCOMYCIN 0.75 GM in IV D5W 250 ML IV SCH (12:00)
--- NOTE | 2019-01-29 12:00 | NUR ---
MS RN NOTES-- PT WAS SEEN AND EXAMINED BY DR. AYALA.
[2019-01-29] MEDS: ENSURE ENLIVE 237 ML LIQUID (VANILLA) PO SCH ×2 (12:36→17:17)
--- NOTE | 2019-01-29 12:43 | NUR ---
WOUND CARE CONSULT WOUND CARE RECEIVED CONSULT FOR MULTIPLE WOUNDS. WOUND CARE WILL DEFER CONSULT AND TREATMENT PLANS TO PLASTIC SURGICAL TEAM INCLUDING DPM DR VICENTE WHO ARE ALL FOLLOWING THIS PATIENT. PATIENT WITH REGINALD AT 10, ALL PRESSURE ULCER PREVENTION MEASURES ARE NOTED TO BE IN PLACE. WILL SEE PRN.
--- NOTE | 2019-01-29 12:56 | NUR ---
MS RN NOTES-- WOUND DEBRIDEMENT DONE AND WOUND CARE DONE PER ORDERS. PT TOLERATED WELL. WILL CONTINUE TO MONITOR.
[2019-01-29 16:00] VITALS: BP 95/63
[2019-01-29 16:36] LABS: OCCULT BLOOD STOOL NEGATIVE (NEGATIVE)
--- NOTE | 2019-01-29 18:37 | NUR ---
MS RN CLOSING NOTES ALL DUE MEDS GIVEN, NEEDS MET AND RENDERED. PT IS A/O X3, AFEBRILE. RESPIRATIONS ARE EVEN AND UNLABORED, NOT IN ANY ACUTE DISTRESS NOTED. PT DENIES ANY PAIN AT THIS TIME, NO C/O SOB, N/V. IV SITE TO RFA/LFA INTACT, NO INFILTRATION NOTED. DRESSINGS KEPT CLEAN AND DRY. SAFETY MEASURES ARE IN PLACE. INSTRUCTED PT TO USE CALL LIGHT WHEN ASSISTANCE IS NEEDED, CALL LIGHT IS LEFT WITHIN REACH. WILL ENDORSE TO NEXT SHIFT FOR CONTINUITY OF CARE.
--- NOTE | 2019-01-29 19:25 | NUR ---
RN MS OPENING NOTES RECEIVED PT IN BED, AWAKE ALERT ORIENTED X3-4, BREATHING EVEN AND UNLABORED ON ROOM AIR. NO COMPLAINT OF PAIN OR DISCOMFORT AT THIS TIME. IV ACCESS ON THE R FA 20G/ LFA 22G WITH NS @50ML/HR. BED IN LOWEST LOCKED POSITION, CALL LIGHT WITHIN REACH AT ALL TIMES, WILL CONTINUE TO MONITOR.
[2019-01-29 20:56] VITALS: BP 113/62
[2019-01-29] MEDS: MEROPENEM 1 G in IV NS 0.9% 100 ML IV SCH (20:56)
[2019-01-29] MEDS: IV NS 0.9% 1,000 ML IV PRN (20:57)
[2019-01-29] MEDS: TERAZOSIN HCL 5 MG CAPSULE GT SCH (21:12)
[2019-01-30] MEDS: CARBIDOPA/LEVODOPA 25/250 MG 1 UDTAB GT SCH ×3 (04:56→20:54)
[2019-01-30] MEDS: FERROUS SULFATE UDC 300 MG/5 ML UDC JT SCH ×3 (04:56→20:55)
[2019-01-30] MEDS: MEROPENEM 1 G in IV NS 0.9% 100 ML IV SCH ×3 (04:57→20:49)
[2019-01-30] MEDS: METRONIDAZOLE 500MG/ NS 100ML 500 MG in PREMIX 1 EA IV SCH (04:57)
[2019-01-30] MEDS: VANCOMYCIN HCL 125 MG/2.5 ML ORAL.SUSP JT SCH ×4 (05:04→23:29)
--- NOTE | 2019-01-30 06:03 | NUR ---
RN MS CLOSING NOTES PT REMAINS IN BED, AWAKE ALERT ORIENTED X3-4, BREATHING EVEN AND UNLABORED ON ROOM AIR. NO COMPLAINT OF PAIN OR DISCOMFORT AT THIS TIME. IV ACCESS ON THE R FA 20G/ LFA 22G WITH NS @50ML/HR. BED IN LOWEST LOCKED POSITION, CALL LIGHT WITHIN REACH AT ALL TIMES, WILL ENDORSE TO DAY NURSE FOR MARLEN
[2019-01-30 06:41] LABS: CALCIUM, SERUM 7.9 mg/dL (8.5-10.1); CARBON DIOXIDE 27 mmol/L (21-32); CHLORIDE 103 mmol/L (98-107); CREATININE 0.6 mg/dL (0.6-1.3); GLUCOSE 100 mg/dL (74-106); POTASSIUM 3.5 mmol/L (3.5-5.1); SODIUM SERUM 137 mmol/L (136-145); UREA NITROGEN, BLOOD 6 mg/dL (7-18)
--- NOTE | 2019-01-30 07:30 | NUR ---
RN MS NOTES PT IN BED, AWAKE, ALERT AND VERBALLY RESPONSIVE, NO COMPLAINT OF PAIN, NOT IN DISTRESS, CALL LIGHT WITHIN REACH, ASSISTED WITH MEALS, TOLERATING CURRENT DIET, ASPIRATION PRECAUTIONS OBSERVED, NEEDS ATTENDED.
[2019-01-30 08:00] VITALS: BP 121/97
[2019-01-30] MEDS: ENSURE ENLIVE 237 ML LIQUID (VANILLA) PO SCH ×3 (08:39→17:35)
[2019-01-30] MEDS: DAKINS QUARTER STRENGTH (0.125%) 480 ML BOTTLE TOP SCH (08:48)
[2019-01-30] MEDS: MULTIVIT W/MINERALS 1 TAB TABLET GT SCH (09:42)
[2019-01-30] MEDS: ZINC SULFATE 220 MG CAPSULE JT SCH (09:42)
[2019-01-30] MEDS: DOCUSATE SODIUM LIQ 100 MG/10 ML UDC JT SCH ×2 (09:42→17:33)
[2019-01-30] MEDS: PROSOURCE / PROSTAT (PYXIS) 30 ML UDC GT SCH ×2 (09:42→17:33)
[2019-01-30] MEDS: ASCORBIC ACID 500 MG TABLET GT SCH ×2 (09:42→17:34)
[2019-01-30] MEDS: ACETAMINOPHEN 650 MG/20.3 ML UDC JT SCH (09:42)
[2019-01-30] MEDS: FAMOTIDINE (20 MG) 20 MG TABLET JT SCH ×2 (09:42→20:55)
--- NOTE | 2019-01-30 13:00 | NUR ---
RN MS NOTES PT IN BED, ASLEEP, EASY TO AROUSE, ALERT AND ORIENTED, NO COMPLAINT OF PAIN AT THIS TIME, NOT IN DISTRESS, IV FLUIDS INFUSING WELL, TOLERATING CURRENT DIET WELL, ASSISTED WITH MEALS, SEEN BY DR. AYALA, F/C DRAINING WELL WITH CLEAR, YELLOW URINE, CALL LIGHT WITHIN REACH.
[2019-01-30] MEDS: METRONIDAZOLE 500 MG TABLET PO SCH ×2 (13:34→20:55)
[2019-01-30 16:00] VITALS: BP 117/77
--- NOTE | 2019-01-30 18:30 | NUR ---
RN MS NOTES PT IN BED, AWAKE, EATING DINNER, TOLERATING WELL, PM MEDS GIVEN, TURNED AND REPOSITIONED Q2 HOURS, PM CARE PROVIDED, ALL NEEDS ATTENDED.
--- NOTE | 2019-01-30 19:10 | NUR ---
MS RN OPENING NOTES Patient received in bed, alert, oriented x 4. Family at bedside. Breathing even and unlabored. Not in any distress, on room air. Lara catheter in place, draining well. Peripheral IV infusing at 50mL/hr. Isolation precautions maintained. Safety measures in place; call light within reach. Bed in low, locked position. Will continue to monitor accordingly
[2019-01-30 20:00] VITALS: BP 120/74
[2019-01-30] MEDS: IV NS 0.9% 1,000 ML IV PRN (20:48)
[2019-01-30 20:54] VITALS: BP 120/74
[2019-01-30] MEDS: TERAZOSIN HCL 5 MG CAPSULE GT SCH (21:01)
[2019-01-31] MEDS: METRONIDAZOLE 500 MG TABLET PO SCH ×3 (04:50→20:24)
[2019-01-31] MEDS: FERROUS SULFATE UDC 300 MG/5 ML UDC JT SCH ×3 (04:50→20:24)
[2019-01-31] MEDS: CARBIDOPA/LEVODOPA 25/250 MG 1 UDTAB GT SCH ×3 (04:50→20:24)
[2019-01-31] MEDS: MEROPENEM 1 G in IV NS 0.9% 100 ML IV SCH ×3 (04:50→20:18)
[2019-01-31] MEDS: VANCOMYCIN HCL 125 MG/2.5 ML ORAL.SUSP JT SCH ×3 (05:11→16:49)
--- NOTE | 2019-01-31 06:30 | NUR ---
MS RN CLOSING NOTES Patient still resting in bed, easy to arouse. Breathing even and unlabored. Not in any distress, on room air. Peripheral IV infusing at 50mL/hr. All due medications given as ordered. Kept clean and dry. Isolation precautions maintained. Safety measures in place; call light within reach, bed in low, locked position. Will endorse MARLEN to oncoming RN
--- NOTE | 2019-01-31 07:34 | NUR ---
MS/RN OPENING NOTE PATIENT IN BED IN ASLEEP, UPON REACH EASILY AROUSABLE. A/0 X 2-3. NO SIGNS OF ACUTE DISTRESS. NO COMPLAIN OF PAIN OR DISCOMFORT AT THIS TIME. ON CONTACT ISOLATION FOR ESBL URINE AND HX OF CDIFF STOOL. ALL NEEDS ATTENDED TO. CALL LIGHT WITHIN REACH. WILL CONTINUE TO MONITOR TO ENSURE SAFETY.
[2019-01-31 08:00] VITALS: BP 124/74
[2019-01-31] MEDS: ENSURE ENLIVE 237 ML LIQUID (VANILLA) PO SCH ×3 (08:18→16:48)
[2019-01-31] MEDS: PROSOURCE / PROSTAT (PYXIS) 30 ML UDC GT SCH ×2 (08:18→16:48)
[2019-01-31] MEDS: DAKINS QUARTER STRENGTH (0.125%) 480 ML BOTTLE TOP SCH (08:19)
[2019-01-31] MEDS: MULTIVIT W/MINERALS 1 TAB TABLET GT SCH (08:21)
[2019-01-31] MEDS: FAMOTIDINE (20 MG) 20 MG TABLET JT SCH ×2 (08:21→20:24)
[2019-01-31] MEDS: DOCUSATE SODIUM LIQ 100 MG/10 ML UDC JT SCH ×2 (08:21→16:48)
[2019-01-31] MEDS: ZINC SULFATE 220 MG CAPSULE JT SCH (08:21)
[2019-01-31] MEDS: ASCORBIC ACID 500 MG TABLET GT SCH ×2 (08:21→16:48)
[2019-01-31] MEDS: ACETAMINOPHEN 650 MG/20.3 ML UDC JT SCH (08:21)
[2019-01-31 09:00] LABS: CARBON DIOXIDE 26 mmol/L (21-32); CHLORIDE 102 mmol/L (98-107); CREATININE 0.6 mg/dL (0.6-1.3); GLUCOSE 99 mg/dL (74-106); POTASSIUM 3.7 mmol/L (3.5-5.1); SODIUM SERUM 135 mmol/L (136-145); UREA NITROGEN, BLOOD 6 mg/dL (7-18)
[2019-01-31 16:00] VITALS: BP 108/67
[2019-01-31] MEDS ORDERED: MERO1VIA IV (16:28)
--- NOTE | 2019-01-31 18:11 | NUR ---
MS/RN CLOSING NOTE PATIENT IN BED IN STABLE CONDITION. A/O X 3. NO SIGNS OF ACUTE DISTRESS.NO COMPLAIN OF PAIN OR DISCOMFORT. SCHEDULE TO BE DISCHARGE TODAY TO [facility] [place]. P/U AT 7:45PM, REPORT GIVEN SAMEAL RN FROM [facility]. ALL NEEDS ATTENDED TO. CALL LIGHT WITHIN REACH. WILL ENDORSE TO NEXT SHIFT FOR CONTINUITY OF CARE.
--- NOTE | 2019-01-31 19:10 | NUR ---
RN mayur opening notes Received Pt from morning nurse. Pt is resting in bed comfortably. Pt is alert and oriented X3. Pt is scheduled to be discharged at 1945 pm per morning nurse. D/C instruction given and signed by Pt per morning nurse. Respiration is normal. No SOB. No nausea or vomiting. Pt denies any pain or discomfort at this time. IV sites at RFA# 20 is clean, intact, patent and infusing well NS 50 ml/hr. Lara cath is intact, patent and draining clear yellow urine. Safety precautions is maintained. Instructed to call. Bed at low position, brakes locked, side rails upX3 and call light is within reach. Will continue to monitor.
[2019-01-31 20:00] VITALS: BP 127/79
--- NOTE | 2019-01-31 21:10 | NUR ---
RN medsurg D/C notes Pt is alert and oriented X3. Pt is resting in bed comfortably. TWO personnels EMT from [facility] came to transfer Pt to [facility]. Respiration is normal. No SOB. No nausea or vomiting. Pt denies any pain or discomfort. VS is stable. D/C notes was given and signed by Pt per morning nurse. Report was given to ELINA Pederson from [facility] per morning nurse. IV sites at RFA and LFA are intact, patent and clean. Per morning nurse do not removed the IV sites and graf catherer. Graf cath is intact, patent and draining clear yellow urine 750 ml. Pt belonging's signed already. D/C paper and belongings were given to Pt. Two green hand health type technician balls were given to Pt and handed to EMT personnels. Routine meds were given as ordered.
--- NOTE | 2019-01-31 22:15 | NUR ---
RN zeeshansurgunner notes Got a phone call from [facility] asking about Pt's belongings (two green strech balls). Informed to the nurse that Pt's paper work, and Pt's belongings two green strech balls were given to two [facility] EMT personnels and was placed inside the plastic bag. Pt knows about that. Pt verbalized understanding. Will call [employer] to find out about Pt's belongings.
--- NOTE | 2019-01-31 22:25 | NUR ---
RN medsurg notes Called [employer] to find out about Pt's belonging :two green stretch balls. SHIN from [employer] states " Victoriano left all Pt's belongings (including two green strect ball inside a plastic bag) in Pt's room at night-stand. Victoriano from [address]. Will call Dana Rivera to verify.
--- NOTE | 2019-01-31 22:34 | NUR ---
RN medsurg notes ELINA Thorne spoke with ELINA Ruggiero from [facility] to informed and verify that two personnels [employer] left Pt's belongings (including two green stretch balls) at Pt's room by the night-stand. Monik said to Mait it's okay.
== END 2019-01-31 21:25 | DRG 951 ==
LOC: ER 10:23 → MED 12:21
PROVIDERS: ADMIT Internal Medicine; ATTEND Internal Medicine
PROC: 0DJ68ZZ Inspection of Stomach, Via Natural or Artificial Opening Endoscopic (ICD-10-PCS; 2019-01-28)
PROC: 0QB10ZZ Excision of Sacrum, Open Approach (ICD-10-PCS; principal; 2019-01-29)
DX: Z43.1 Encounter for attention to gastrostomy (principal); L89.154 Pressure ulcer of sacral region, stage 4; G20 Parkinson's disease; K31.84 Gastroparesis; N31.9 Neuromuscular dysfunction of bladder, unspecified; E11.43 Type 2 diabetes mellitus with diabetic autonomic (poly)neuropathy; K86.1 Other chronic pancreatitis; D64.9 Anemia, unspecified; R13.10 Dysphagia, unspecified; D72.829 Elevated white blood cell count, unspecified; N40.0 Benign prostatic hyperplasia without lower urinary tract symptoms; Z86.718 Personal history of other venous thrombosis and embolism; Z86.711 Personal history of pulmonary embolism; Z79.01 Long term (current) use of anticoagulants; I10 Essential (primary) hypertension; N39.0 Urinary tract infection, site not specified; B96.20 Unspecified Escherichia coli [E. coli] as the cause of diseases classified elsewhere; L98.8 Other specified disorders of the skin and subcutaneous tissue; M24.572 Contracture, left ankle; M24.571 Contracture, right ankle; Z74.01 Bed confinement status; Z43.4 Encounter for attention to other artificial openings of digestive tract
CPT/HCPCS: 36415; 43235; 71045-TC; 80048-TC; 80053-TC; 80061-TC; 80076-TC; 80202-TC; 81000-TC; 82272-TC; 82728-TC; 83540-TC; 83605-TC; 83735-TC; 84100-TC; 84484-TC; 85025-TC; 85730-TC; 87040-TC; 87081-TC; 87086-TC; 87186-TC; 92526; 92611-TC; 93970-TC; 97110-TC; 97112-TC; 97530-TC; A4216; A6253; A6403; G0378; J2185; J2543; J2704; J3370; J3475; J3490; J7030; J7060

== ENCOUNTER 2019-04-14 13:19 | Emergency (ER) | payer MEDICARE, OTHER ==
[~2019-04-14] VITALS: Ht 177.8 cm; Wt 63.5 kg
[~2019-04-14 13:19] MED LIST changes: -ACET-2605 JT; -ACET-868 JT; +ACET-868 PO; +ACET650S26 PO; -AMIN30LI2 JT; +AMIN30LI2 PO; -CARB-94 JT; +CARB-94 PO; -DOCU50LI JT; +DOCU50LI PO; -FAMO20TA8 JT; +FAMO20TA8 PO; -LIPA1CAP8 JT; +LIPA1CAP8 PO; -MAGN400O6 JT; +MAGN400O6 PO; +MERO1VIA IV; -ONDA4TAB5 JT; +ONDA4TAB5 PO; -TERA5CAP4 JT; +TERA5CAP4 PO
--- NOTE | 2019-04-14 13:30 | NUR ---
PT BIB [facility] FOR SACRAL AND R HEEL DECUBITUS ULCER EVAL. PT AAOX4, VSS, BREATHING EVEN AND UNLABORED ON ROOM AIR. PT STATED 8/10 PAIN ON SACRAL AREA. R HEEL BRUISE NOTED. SACRAL WOUND NOTED. PT CONNECTED TO THE MONITOR
--- NOTE | 2019-04-14 13:58 | NUR ---
DR DEL VALLE SAYS HE WILL CALL BACK
[2019-04-14] MEDS ORDERED: ACET-2605 PO (14:06)
[2019-04-14] MEDS ORDERED: WARF2TAB57 PO (14:06)
[2019-04-14] MEDS ORDERED: WARF2.5T47 PO (14:06)
[2019-04-14] MEDS ORDERED: FERR325T24 PO (14:06)
[2019-04-14] MEDS ORDERED: MULT-24 PO (14:06)
--- NOTE | 2019-04-14 14:11 | NUR ---
XRAY AT BEDSIDE
[2019-04-14 14:14] LABS: BASOPHILS # (AUTO) 0.1 /CMM (0.0-0.2); BASOPHILS % (AUTO) 0.6 % (0.0-2.0); EOSINOPHILS % (AUTO) 2.7 % (0.0-6.0); HEMATOCRIT 36 % (39-51); HEMOGLOBIN 11.5 g/dL (13.5-17.5); LYMPHOCYTES # (AUTO) 3.1 /CMM (0.8-4.8); LYMPHOCYTES % (AUTO) 32.9 % (20.0-44.0); MEAN CORPUSCULAR HGB CONC 33 g/dl (31.0-36.0); MEAN CORPUSCULAR VOLUME 90 fL (80-96); MONOCYTES # (AUTO) 0.6 /CMM (0.1-1.30); MONOCYTES % (AUTO) 6.9 % (2.0-12.0); NEUTROPHILS # (AUTO) 5.3 /CMM (1.8-8.9); NEUTROPHILS % (AUTO) 56.9 % (43.0-81.0); PLATELET COUNT (AUTO) 341 /CMM (150-450); RED BLOOD CELL COUNT(AUTO) 3.94 MIL/uL (4.5-6.0); WHITE BLOOD COUNT (AUTO) 9.4 K/uL (4.3-11.0)
[2019-04-14 14:27] LABS: CALCIUM, SERUM 8.3 mg/dL (8.5-10.1); CREATININE 0.7 mg/dL (0.6-1.3); POTASSIUM 3.7 mmol/L (3.5-5.1)
--- NOTE | 2019-04-14 14:44 | NUR ---
SPOKE TO DR PAREDES, GAVE T.O ORDERS
--- NOTE | 2019-04-14 14:55 | NUR ---
DR DEL VALLE AT BEDSIDE
--- NOTE | 2019-04-14 15:34 | NUR ---
DANNY ETA 1600 TRIP #[id number]
--- NOTE | 2019-04-14 16:54 | NUR ---
Patient discharged to facility in stable condition. Written and verbal after care instructions given. Patient verbalizes understanding of instruction.
--- NOTE | 2019-04-14 16:54 | NUR ---
LEFT MESSAGE FOR REPORT, KADE
[2019-04-14 16:55] VITALS: BP 128/84
== END 2019-04-14 16:56 ==
LOC: ER 13:21
DX: L89.154 Pressure ulcer of sacral region, stage 4 (principal); G20 Parkinson's disease; I10 Essential (primary) hypertension; Z86.718 Personal history of other venous thrombosis and embolism; Z98.890 Other specified postprocedural states; Z79.01 Long term (current) use of anticoagulants; Z79.4 Long term (current) use of insulin; Z79.899 Other long term (current) drug therapy
CPT/HCPCS: 36415; 71045-TC; 80048-TC; 85025-TC; 85730-TC

== ENCOUNTER 2020-04-28 11:13 | Inpatient (IN) | payer MEDICARE, OTHER ==
[~2020-04-28] VITALS: Ht 177.8 cm; Wt 62.6 kg
[~2020-04-28 11:13] MED LIST changes: +ACET-2605 PO; -ACET650S26 JT; -ARGI1POW13 JT; -FERR300L JT; +FERR325T24 PO; -LOPE2TAB25 JT; -MERO1VIA IV; -METR500P3 IV; +MULT-24 PO; -MULT1TAB73 JT; -NUT.237L30 JT; -VANC125C11 JT; -VIT500LI JT; +WARF2.5T PO; +WARF2TAB57 PO; -ZINC220C6 JT
--- NOTE | 2020-04-28 11:15 | NUR ---
CAME FROM SNF, C/O LOWER EXT WEAKNESS, NO FALL PER EMT REPORT PER SNF REPORT WORSENING WEAKNESS OF BLE. PATIENT A/OX3, BREATHING EVEN AND UNLABORED, NO SOB NOTED, NEEDS ATTENDED.
--- NOTE | 2020-04-28 11:17 | NUR ---
PT OF DR. RASHID
[2020-04-28] MEDS ORDERED: ASCO500C17 PO (11:28)
[2020-04-28] MEDS ORDERED: ARGI1POW13 PO (11:28)
[2020-04-28] MEDS ORDERED: IV NS 0.9% 1,000 ML BAG IV ONE (11:30)
[2020-04-28 11:50] LABS: BASOPHILS % (AUTO) 0.5 % (0.0-2.0); EOSINOPHILS % (AUTO) 1.5 % (0.0-6.0); HEMATOCRIT 44 % (39-51); HEMOGLOBIN 14.6 g/dL (13.5-17.5); LYMPHOCYTES # (AUTO) 3.4 /CMM (0.8-4.8); LYMPHOCYTES % (AUTO) 36.5 % (20.0-44.0); MEAN CORPUSCULAR HGB CONC 33 g/dl (31.0-36.0); MEAN CORPUSCULAR VOLUME 93 fL (80-96); MONOCYTES # (AUTO) 0.7 /CMM (0.1-1.30); MONOCYTES % (AUTO) 7.5 % (2.0-12.0); PLATELET COUNT (AUTO) 219 /CMM (150-450); RED BLOOD CELL COUNT(AUTO) 4.77 MIL/uL (4.5-6.0); WHITE BLOOD COUNT (AUTO) 9.3 K/uL (4.3-11.0)
[2020-04-28 12:05] LABS: ALBUMIN 3.4 g/dL (3.4-5.0); BILIRUBIN,DIRECT 0.2 mg/dL (0.0-0.2); BILIRUBIN,TOTAL 0.5 mg/dL (0.2-1.0); CALCIUM, SERUM 8.6 mg/dL (8.5-10.1); CREATININE 0.7 mg/dL (0.6-1.3); POTASSIUM 4.2 mmol/L (3.5-5.1)
--- NOTE | 2020-04-28 12:10 | NUR ---
MOVE SHEET SUBMITTED AND CALLED FOR MS BED.
--- NOTE | 2020-04-28 12:50 | NUR ---
CALLED DR. RASHID LEFT [facility] TO CALL US BACK.
--- NOTE | 2020-04-28 13:34 | NUR ---
patient unable to give urine sample, md augustin
--- NOTE | 2020-04-28 13:40 | NUR ---
COVID SWAB SENT.
--- NOTE | 2020-04-28 14:03 | NUR ---
REPORT GIVEN TO KARLI ANTOINE FOR MARLEN.
[2020-04-28] MEDS ORDERED: ONDANSETRON HCL/PF 4 MG/2 ML VIAL IVP PRN (15:00)
[2020-04-28] MEDS ORDERED: ALBUTEROL FS 2.5 MG/0.5 ML VIAL.NEB NEB PRN (15:00)
[2020-04-28] MEDS ORDERED: IPRATROPIUM NEB FS 0.5 MG/2.5 ML AMPUL.NEB NEB PRN (15:00)
[2020-04-28] MEDS ORDERED: MAGNESIUM HYDROXIDE 30 ML UDC PO PRN (15:00)
[2020-04-28] MEDS ORDERED: Medication Not On Formulary EA (Ipratropium/Albuterol Sulfate (Duoneb 2.5-0.5 Mg/3 Ml So IH PRN (15:00)
[2020-04-28] MEDS ORDERED: ACETAMINOPHEN 650 MG/20.3 ML UDC PO PRN (15:00)
[2020-04-28] MEDS ORDERED: ZOLPIDEM TARTRATE 5 MG TABLET PO PRN (15:00)
[2020-04-28] MEDS ORDERED: HYDROCODONE/APAP 5/325MG TABLET PO PRN (15:00)
[2020-04-28] MEDS ORDERED: ACETAMINOPHEN 325 MG TABLET PO PRN (15:00)
--- NOTE | 2020-04-28 15:26 | NUR ---
PATIENT TRANSFERRED TO ROOM 207 IN STABLE CONDITION. NEEDS ATTENDED. ENDORSED TO KARLI ANTOINE.
--- NOTE | 2020-04-28 15:30 | NUR ---
ms rn received a new admission, patient is awake alert,oriented x4,came in w/ dx of generalized weakness, no sob noted, med/surge status, under fatoumata victor,denies pain at this time,all needs attended.
--- NOTE | 2020-04-28 17:00 | NUR ---
ms rn due meds given,tolerated well.
[2020-04-28] MEDS: DOCUSATE SODIUM LIQ 100 MG/10 ML UDC PO SCH (17:41)
[2020-04-28] MEDS: ASCORBIC ACID 500 MG TABLET PO SCH (17:41)
[2020-04-28] MEDS: LIPASE/PROTEASE/AMYLASE 1 EACH CAPSULE.DR PO SCH (17:41)
--- NOTE | 2020-04-28 18:28 | NUR ---
ms rn on bed, no distress noted,all needs attended.
--- NOTE | 2020-04-28 19:03 | NUR ---
ms shaun nova pcr sent to lab.
[2020-04-28 20:00] VITALS: BP 144/87
--- NOTE | 2020-04-28 21:51 | NUR ---
missing med- terazosin faxed to the nursing cost and sales record supervisor at 2120, called to follow-up, per nursing cost and sales record supervisor it's not available at this time.
[2020-04-28] MEDS: TERAZOSIN HCL 5 MG CAPSULE PO SCH (22:00)
[2020-04-28] MEDS: FAMOTIDINE (20 MG) 20 MG TABLET PO SCH (23:58)
[2020-04-28] MEDS: CARBIDOPA/LEVODOPA 25/250 MG 1 UDTAB PO SCH (23:58)
[2020-04-28] MEDS: FERROUS SULFATE (325 MG) 325 MG/TAB TABLET PO SCH (23:58)
--- NOTE | 2020-04-29 03:17 | NUR ---
Paged [employer] [place] RE: patient complained of itchiness. no orders made.
[2020-04-29] MEDS: CARBIDOPA/LEVODOPA 25/250 MG 1 UDTAB PO SCH ×5 (05:00→21:08)
[2020-04-29] MEDS: FERROUS SULFATE (325 MG) 325 MG/TAB TABLET PO SCH ×5 (05:00→21:08)
[2020-04-29 06:52] LABS: BASOPHILS % (AUTO) 0.4 % (0.0-2.0); EOSINOPHILS % (AUTO) 1.3 % (0.0-6.0); HEMATOCRIT 42 % (39-51); HEMOGLOBIN 13.8 g/dL (13.5-17.5); LYMPHOCYTES # (AUTO) 2.9 /CMM (0.8-4.8); LYMPHOCYTES % (AUTO) 29.1 % (20.0-44.0); MEAN CORPUSCULAR HGB CONC 33 g/dl (31.0-36.0); MEAN CORPUSCULAR VOLUME 93 fL (80-96); MONOCYTES # (AUTO) 0.6 /CMM (0.1-1.30); MONOCYTES % (AUTO) 6.2 % (2.0-12.0); NEUTROPHILS # (AUTO) 6.4 /CMM (1.8-8.9); PLATELET COUNT (AUTO) 201 /CMM (150-450); RED BLOOD CELL COUNT(AUTO) 4.54 MIL/uL (4.5-6.0); WHITE BLOOD COUNT (AUTO) 10.1 K/uL (4.3-11.0)
--- NOTE | 2020-04-29 06:52 | NUR ---
MS RN CLOSING NOTES: PATIENT IN BED, ASLEEP,AROUSABLE. A/O X4. NO COMPLAIN OF PAIN. NO S/S OF DISTRESS NOTED. CALL LIGHT WITHIN REACH. BED ALARM ON. BED IN LOWEST AND LOCKED POSITION. PATIENT REFUSED TO BE TURNED EARLIER THIS MORNING AND LAST NIGHT. WITH SCD'S ON BOTH LEGS THE ENTIRE SHIFT. RESTED THROUGHOUT THE SHIFT.
--- NOTE | 2020-04-29 07:06 | NUR ---
MS RN OPENING NOTES RECEIVED PT AWAKE IN BED AT THIS TIME. PT AOX3. NO SOB NOTED, NO S/S OF ANY ACUTE DISTRESS NOTED. NO C/O PAIN AT THIS TIME. RESPIRATIONS ARE EVEN AND UNLABORED WITH EQUAL RISE AND FALL IN CHEST. PT STABLE ON RA. IV ACCESS NOTED IN RIGHT HAND G# 20, INTACT, PATENT AND FLUSHING WELL. ASPIRATION AND SAFETY PRECAUTION IN PLACE AND MAINTAINED AT ALL TIMES. BED IN LOWEST LOCKED POSITION, HOB ELEVATED, SIDE RAILS UP X 2, CALL LIGHT AND TABLE WITHIN REACH. WILL CONTINUE TO MONITOR.
[2020-04-29 07:57] LABS: THYROID STIMULATING HORMONE 1.071 uIU/mL (0.358-3.74); URIC ACID 4.1 mg/dL (2.6-7.2)
[2020-04-29 08:00] VITALS: BP 119/79
[2020-04-29 08:12] LABS: CALCIUM, SERUM 8.7 mg/dL (8.5-10.1); CREATININE 0.7 mg/dL (0.6-1.3); MAGNESIUM 2.2 mg/dL (1.8-2.4); PHOSPHORUS 2.9 mg/dL (2.5-4.9); POTASSIUM 4.1 mmol/L (3.5-5.1)
[2020-04-29] MEDS: MULTIVITAMINS,THERAGRAN 1 UDTAB TABLET PO SCH (08:22)
[2020-04-29] MEDS: LIPASE/PROTEASE/AMYLASE 1 EACH CAPSULE.DR PO SCH ×3 (08:22→17:01)
[2020-04-29] MEDS: FAMOTIDINE (20 MG) 20 MG TABLET PO SCH ×3 (08:22→21:08)
[2020-04-29] MEDS: ASCORBIC ACID 500 MG TABLET PO SCH ×2 (08:22→16:13)
[2020-04-29] MEDS: DOCUSATE SODIUM LIQ 100 MG/10 ML UDC PO SCH ×2 (08:22→16:13)
--- NOTE | 2020-04-29 12:30 | NUR ---
LARRY, PULP HOUSE SUPERVISOR INFORMED NURSE THAT LUMBAR PUNCTURE WOULD NOT BE DONE DUE TO PATIENT'S PT 18.8 AND INR 1.88. DOCTOR RASHARD MADE AWARE. NEW ORDERS RECEIVED FROM DR WETZEL TO ADMINISTER VIT K 1MG SQ, AND REPEAT INR IN AM. ORDERS CARRIED OUT. WILL CONTINUE TO MONITOR
[2020-04-29] MEDS ORDERED: PHYTONADIONE INJ 10 MG/1 ML AMPUL SQ SCH ×2 (13:00→14:00)
--- NOTE | 2020-04-29 13:00 | NUR ---
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 PROCEDURE CONSENT SIGNED BY PT AT THIS TIME. WILL CONTINUE WITH PLAN OF CARE.
--- NOTE | 2020-04-29 13:25 | NUR ---
@1217 04/29 PER RADIOLOGIST MD KIM PT INR IS TOO HIGH. NEED TO BE CORRECTED PRIOR TO EXAM. RN EMACULATE NOTIFIED
--- NOTE | 2020-04-29 16:58 | NUR ---
PT TRANSPORTED TO [facility] BY BED AT THIS TIME BY NURSE AND EMMANUEL MOHAMUD. BEDSIDE REPORT GIVEN TO ELINA HERCULES FOR CONTINUITY OF CARE.
--- NOTE | 2020-04-29 17:21 | NUR ---
MS RN NOTE PATIENT RECEIVED FROM MS2. REPORT TAKEN FROM MONA RN. PATIENT IN BED RESTING COMFORTABLY. PATIENT IN NO ACUTE DISTRESS. NO SOB NOTED. PATIENT BREATHING IS EVEN AND UNLABORED. BED ALARM IS ON. SAFETY PRECAUTIONS IN PLACE. PATIENT BED IS LOCKED AND IN LOWEST POSITION. CALL LIGHT WITHIN REACH. WILL CONTINUE TO MONITOR.
[2020-04-29 17:30] VITALS: BP 113/79
[2020-04-29 17:40] VITALS: BP 113/79
--- NOTE | 2020-04-29 18:45 | NUR ---
MS RN NOTE PATIENT IN BED SLEEPING, RESTING COMFORTABLY. PATIENT IN NO ACUTE DISTRESS. NO SOB NOTED. PATIENT BREATHING IS EVEN AND UNLABORED. NO FACIAL GRIMACING NOTED. PATIENT BED ALARM IS ON. SAFETY PRECAUTIONS IN PLACE. PATIENT KEPT CLEAN AND DRY THROUGHOUT MY CARE. PATIENT BED IS LOCKED AND IN LOWEST POSITION. CALL LIGHT WITHIN REACH. WILL ENDORSE CARE TO PM SHIFT FOR MARLEN.
--- NOTE | 2020-04-29 19:45 | NUR ---
MS RN NOTES RECEIVED ON BED SLEEPING,AROUSABLE TO VERBAL STIMULI,BREATHING NON LABORED,SALINE LOCK RIGHT HAND INTACT AND PATENT.FALL RISK,BED ALARM,BED ON LOWEST POSITION AND LOCKED,DVT PUMP IN USED,ON GEL BED FOR SKIN MANAGEMENT.LEFT HEEL DRESSING INTACT AND DRY,ELEVATED ON PILLOWS.CALL LIGHT IN REACH,NEEDS ANTICIPATED.
[2020-04-29 20:00] VITALS: BP 118/73
[2020-04-29 20:51] VITALS: BP 118/73
[2020-04-29] MEDS: TERAZOSIN HCL 5 MG CAPSULE PO SCH ×2 (21:10→21:34)
--- NOTE | 2020-04-29 21:36 | NUR ---
MS RN NOTES REFUSED ALL HIS NIGHT DUE MEDS.EXPLAINED RISK AND BENEFITS BUT STILL REFUSED.CLAIMED HE SCARED,HE MIGHT VOMIT,EMPTY STOMACH.
[2020-04-30] VITALS (8 sets, daily range): BP systolic 108–138; BP diastolic 71–84
--- NOTE | 2020-04-30 02:25 | NUR ---
MS RN NOTES AWAKE,CANT GO BACK TO SLEEP,AMBIEN 5MG PO GIVEN FOR INSOMNIA.
[2020-04-30] MEDS: CARBIDOPA/LEVODOPA 25/250 MG 1 UDTAB PO SCH ×3 (05:00→21:00)
[2020-04-30] MEDS: FERROUS SULFATE (325 MG) 325 MG/TAB TABLET PO SCH ×3 (05:00→21:00)
--- NOTE | 2020-04-30 06:42 | NUR ---
MS RN NOTES SLEPT WELL WITH AMBIEN,PO MEDS REFUSED.MORNING CARE RENDERED,IN NO ACUTE DISTRESS.WILL ENDORSE TO DAY NURSE FOR MARLEN.
--- NOTE | 2020-04-30 07:19 | NUR ---
MS RN OPENING NOTES RECEIVED PT AWAKE IN BED IN NO ACUTE SIGNS OF DISTRESS. A/O X3, ABLE TO MAKE NEEDS KNOWN, DENIES PAIN OR ANY DISCOMFORTS AT THIS TIME. ON ROOM AIR, BREATHING EVEN AND UNLABORED. PT REMOVED HIS IV ACCESS ON RIGHT HAND EARLIER, NO BLEEDING AT SITE NOTED. WILL TRY TO INSERT ONE. SAFETY MEASURES IN PLACE: BED IN LOWEST LOCKED POSITION WITH SR UP X2. CALL LIGHT W/IN EASY REACH. WILL CONTINUE TO MONITOR PT ACCORDINGLY.
[2020-04-30] MEDS: LIPASE/PROTEASE/AMYLASE 1 EACH CAPSULE.DR PO SCH ×3 (08:10→17:12)
[2020-04-30] MEDS: FAMOTIDINE (20 MG) 20 MG TABLET PO SCH ×2 (08:11→21:00)
[2020-04-30] MEDS: ASCORBIC ACID 500 MG TABLET PO SCH ×2 (08:11→17:11)
[2020-04-30] MEDS: DOCUSATE SODIUM LIQ 100 MG/10 ML UDC PO SCH ×2 (08:11→17:00)
[2020-04-30] MEDS: MULTIVITAMINS,THERAGRAN 1 UDTAB TABLET PO SCH (08:11)
[2020-04-30] MEDS ORDERED: Z GUARD REMEDY 2 OZ OINT TP PRN (09:00)
--- NOTE | 2020-04-30 09:01 | NUR ---
WOUND CARE CONSULT: PT PRESENTS WITH STAGE 4 ULCER TO SACRUM AND RT HEEL INTACT DEEP TISSUE INJURY, PRESENT ON ADMISSION. RECOMMEND SURGICAL AND DPM CONSULTS. DR BOX AND DR HERRERA NOTIFIED OF CONSULT REQUESTS. PT IS ON AMANDA ISOFLEX LOW AIRLOSS BED. IN AGREEMENT WITH PLAN OF CARE. Addendum: 04/30/20 at 0903 by STEPHANIA VORA WNDNU Amended: Links added.
[2020-04-30] MEDS: Z GUARD REMEDY 2 OZ OINT TP SCH (09:13)
--- NOTE | 2020-04-30 10:35 | NUR ---
RN NOTES PT COMPLAINING OF BODY ITCH, DR WETZEL MADE AWARE WITH ORDER TO GIVE BENADRYL 25MG TAB Q12HRS PRN.
--- NOTE | 2020-04-30 10:36 | NUR ---
RN NOTES PT WHEELED BY TWO WAY RADIO TECHNICIAN FOR X-RAY LUMBAR PUNCTURE.
[2020-04-30] MEDS ORDERED: diphenhydrAMINE HCL ELIX 25 MG/10 ML UDC PO PRN (11:00)
[2020-04-30] MEDS ORDERED: LIDOCAINE HCL/PF 1% 30 ML SDV ONE (11:10)
--- NOTE | 2020-04-30 11:43 | NUR ---
RN NOTES PT RETURNED FROM X-RAY LUMBAR PUNCTURE. PUNCTURE SITE AT MID LOWER BACK NOTED WITH 2 BAND AIDS, NO ACTIVE BLEEDING NOTED. WILL CONTINUE TO MONITOR. Addendum: 04/30/20 at 1221 by GISSELL WYLIE RN ADDENDUM: V/S CHECKED S/P LUMBAR PUNCTURE: BP 138/84, P 75, R 18, T 98.6 AND SP02 97% ON ROOM AIR. FOUR VIALS OF CLEAR SPECIMEN RECEIVED AND SENT TO LAB FOR PROTEIN AND IMMUNOGLOBULIN TEST TO R/O GUILLAIN BARRE SYNDROME.
--- NOTE | 2020-04-30 14:50 | NUR ---
RN NOTES NEW IV ACCESS INSERTED ON PT'S LEFT WRIST G#22 AND SECURED WITH TAPE AND DATED.
[2020-04-30] MEDS: diphenhydrAMINE HCL 25 MG CAPSULE PO PRN (17:13)
--- NOTE | 2020-04-30 17:14 | NUR ---
RN NOTES PT C/O ITCHING STATED "I HAVE ITCH ALL OVER MY BODY", PRN BENADRYL 25MG CAP PO GIVEN ORDERED. WILL CONTINUE TO MONITOR.
--- NOTE | 2020-04-30 17:35 | NUR ---
RN NOTES PT REFUSED TO BE REPOSITION FROM SIDE TO SIDE SINCE THIS MORNING DESPITE EDUCATED ON RISKS AND BENEFITS OF DOING IT. WILL CONTINUE TO MONITOR
--- NOTE | 2020-04-30 18:37 | NUR ---
MS RN CLOSING NOTES PT IN BED AWAKE AND RESTING AT MODERATE HIGH BACKREST POSITION. A/O X3, SAME ABLE TO MAKE NEEDS KNOWN. ON ROOM AIR, BREATHING EVEN AND UNLABORED. IV SL ON LEFT WRIST G#22 INTACT, PATENT AND FLUSHES WELL. PT REFUSED TO TURNED FROM SIDE TO SIDE. ALL NEEDS AND CARE ATTENDED WELL. SAFETY MEASURES KEPT IN PLACE: BED IN LOWEST LOCKED POSITION WITH SR UP X2. CALL LIGHT W/IN EASY REACH. WILL ENDORSE MARLEN TO INCOMING NIGHT NURSE.
--- NOTE | 2020-04-30 19:35 | NUR ---
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 PT IN BED, RESTING, RESPONSIVE TO EXTERNAL STIMULI. PT A/O X3 ON RA RESPIRATIONS EVEN AND UNLABORED. IV ACCESS PATENT AND FLUSHING WELL, ON HL. SEEN BY NANCI TODAY, NO DEBRIDEMENT NEEDED PER MD. DISCUSSED PLAN OF CARE TO PT. SAFETY PRECAUTIONS FOR FALL INITIATED, CALL LIGHT IN REACH, WILL CONTINUE MONITORING PT.
--- NOTE | 2020-04-30 20:30 | NUR ---
RN NOTES: BARREL ASSEMBLY INSPECTOR MD MADE AWARE REGARDING VTE SCORE, INFORMED PT S/P LUMBAR PUNCTURE TODAY 04/30, VIT K RECEIVED YESTERDAY 04/29. PER MD WILL TAKE A LOOK ON IT.
[2020-04-30] MEDS: TERAZOSIN HCL 5 MG CAPSULE PO SCH (22:00)
--- NOTE | 2020-04-30 22:08 | NUR ---
NON ADMIN OF 2100 MEDICATION: PT REFUSED TAKING ANY MEDICATION STATED HE DOESNT WANT ANY MEDICINE ALL HE WANT IS TO SLEEP AND REST. EDUCATION PROVIDED TO PT, HOWEVER PT REMAINS TO REFUSED. WILL ENCOURAGE AGAIN LATER.
--- NOTE | 2020-04-30 23:00 | NUR ---
RN NOTES: PT ALEXIS TO REFUSED TAKING ANY OF HIS 2100 SCHED MEDICATION DESPITE PROVIDING EDUCATION.
--- NOTE | 2020-05-01 | NUR ---
REFUSAL FOR REPOSITION: PT REFUSED TO BE TURN AND REPOSITION, STATED HE'S COMFORTABLE ON HIS POSITION, EDUCATE PT REGARDING IMPORTANCE OF TURNING AND REPOSITION AISLINN HE ALREADY HAVE WOUND ON SACRAL AREA. BUT PT REFUSED. WILL OFFER AGAIN LATER
--- NOTE | 2020-05-01 02:03 | NUR ---
REFUSAL FOR REPOSITION: PT REFUSED TO BE TURN AND REPOSITION AT THIS TIME, EDUCATION PROVIDED TO PT, PT STATED LEAVE HIM ALONE. 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
[2020-05-01] MEDS: diphenhydrAMINE HCL 25 MG CAPSULE PO PRN (04:08)
--- NOTE | 2020-05-01 04:09 | NUR ---
prn benadryl: pt noted to be itching on legs, requesting for benadryl. benadryl 25mg po capsule q12hr, last admin at 1702. informed md stock control supervisor as it will be an hour before its due, per md okay to administer medicine at this time. prn benadryl 25mg cap po administer to pt. pt also refused taking other medication sinemet and ferrous sulfate, stated only wants benadryl. education provided to pt.
[2020-05-01] MEDS: FERROUS SULFATE (325 MG) 325 MG/TAB TABLET PO SCH ×2 (04:13→13:45)
[2020-05-01] MEDS: CARBIDOPA/LEVODOPA 25/250 MG 1 UDTAB PO SCH ×2 (04:13→13:45)
--- NOTE | 2020-05-01 06:46 | NUR ---
end of shift report: pt remains a/o x3, on ra, remains to refused turning and repositioning and also refused scheduled medication despite providing education. iv access remains patent and flushing well, on hl, no s/s of iv infiltration noted. vs remains stable, needs attended. PLAN OF CARE: Pending GI eval, PT, OT eval. Safety precautions for fall remains engaged, call light in reach, will endorse to day rn for continuity of care
[2020-05-01 08:01] VITALS: BP 104/66
[2020-05-01] MEDS: DOCUSATE SODIUM LIQ 100 MG/10 ML UDC PO SCH ×2 (08:58→17:24)
[2020-05-01] MEDS: ASCORBIC ACID 500 MG TABLET PO SCH ×2 (08:58→17:24)
[2020-05-01] MEDS: FAMOTIDINE (20 MG) 20 MG TABLET PO SCH (08:58)
[2020-05-01] MEDS: MULTIVITAMINS,THERAGRAN 1 UDTAB TABLET PO SCH (08:58)
[2020-05-01] MEDS: LIPASE/PROTEASE/AMYLASE 1 EACH CAPSULE.DR PO SCH ×3 (08:59→17:24)
[2020-05-01] MEDS: Z GUARD REMEDY 2 OZ OINT TP SCH (09:21)
[2020-05-01 14:21] LABS: CSF GLUCOSE 68 mg/dL (40-70); CSF PROTEIN 56.7 mg/dL (15-45)
--- NOTE | 2020-05-01 15:30 | NUR ---
refused discharge photos.
[2020-05-01 16:06] VITALS: BP 147/87
--- NOTE | 2020-05-01 17:25 | NUR ---
CALL X3 TO PT'S TRANSFERRING FACILITY TO GIVE REPORT.NO RESPONSE.PHONE CONT. TO RING.CALL BACK TO [facility] CLOS[facility],RN LEFT WORD WITH ESCROW CLOSER FOR STAFF TO CALL BACK AND GET REPORT.
--- NOTE | 2020-05-01 18:35 | NUR ---
RELATIONSHIP MANAGEMENT LEAD HERE,GIVEN REPORT ON PT.AWARE NO REPORT YET TO FACILITY.DRESSING SUPPLIES SENT WITH PT.TAKEN VIA AMBULANCE TO FACILITY.
--- NOTE | 2020-05-01 18:45 | NUR ---
CESAR BACK FROM [facility] TO RECEIVE REPORT ON PT.AWARE OF PT. STATUS.
== END 2020-05-01 18:30 | DRG 94 ==
LOC: ER 11:20 → MEDSG2 12:28 → MED 04-29 17:13
PROVIDERS: ADMIT Internal Medicine
PROC: 009U3ZX Drainage of Spinal Canal, Percutaneous Approach, Diagnostic (ICD-10-PCS; principal; 2020-04-30)
PROC: B01BYZZ Fluoroscopy of Spinal Cord using Other Contrast (ICD-10-PCS; 2020-04-30)
DX: G61.0 Guillain-Barre syndrome (principal); L89.154 Pressure ulcer of sacral region, stage 4; K86.1 Other chronic pancreatitis; E22.2 Syndrome of inappropriate secretion of antidiuretic hormone; I10 Essential (primary) hypertension; M24.571 Contracture, right ankle; Z86.718 Personal history of other venous thrombosis and embolism; Z86.711 Personal history of pulmonary embolism; N40.0 Benign prostatic hyperplasia without lower urinary tract symptoms; I48.91 Unspecified atrial fibrillation; D64.9 Anemia, unspecified; R13.10 Dysphagia, unspecified; Z79.01 Long term (current) use of anticoagulants; Z79.4 Long term (current) use of insulin; L98.8 Other specified disorders of the skin and subcutaneous tissue; L89.616 Pressure-induced deep tissue damage of right heel; R53.1 Weakness; N31.9 Neuromuscular dysfunction of bladder, unspecified; Z87.440 Personal history of urinary (tract) infections
CPT/HCPCS: 36415; 62270; 71045-TC; 80048-TC; 80061-TC; 80076-TC; 82962-TC; 83690-TC; 83735-TC; 84100-TC; 84155-TC; 84443-TC; 84550-TC; 85025-TC; 85610-TC; 85652-TC; 85730-TC; 87081-TC; 89051-TC; A6403; A6407; G0378; J3430; J3490; J7030; Q0163; U0003

== ENCOUNTER 2022-06-23 14:06 | Inpatient (IN) | payer MEDICARE, OTHER ==
[~2022-06-23] VITALS: Ht 177.8 cm; Wt 54.4 kg
[~2022-06-23 14:06] MED LIST changes: -ACET-2605 PO; -ACET-868 PO; +ARGI1POW13 PO; +ASCO500C17 PO; -INSU100V3 SQ; -WARF2.5T PO; -WARF2TAB57 PO
--- NOTE | 2022-06-23 14:57 | NUR ---
ESTABLISHED IV LINE 20G RIGHT LOWER ARM
[2022-06-23] MEDS ORDERED: IV NS 0.9% 1,000 ML BAG IV ONE (15:00)
--- NOTE | 2022-06-23 15:00 | NUR ---
BLOOD SAMPLE OBTAINED SENT TO LAB
[2022-06-23 15:17] LABS: BASOPHILS # (AUTO) 0.1 K/uL (0.0-0.2); BASOPHILS % (AUTO) 0.3 % (0.0-2.0); EOSINOPHILS % (AUTO) 0.5 % (0.0-6.0); HEMATOCRIT 35 % (39-51); HEMOGLOBIN 11.3 g/dL (13.5-17.5); LYMPHOCYTES # (AUTO) 2.7 K/uL (0.8-4.8); LYMPHOCYTES % (AUTO) 14.6 % (20.0-44.0); MEAN CORPUSCULAR HGB CONC 32 g/dl (31.0-36.0); MEAN CORPUSCULAR VOLUME 86 fL (80-96); MONOCYTES # (AUTO) 1.3 K/uL (0.1-1.30); MONOCYTES % (AUTO) 7.1 % (2.0-12.0); NEUTROPHILS # (AUTO) 14.2 K/uL (1.8-8.9); NEUTROPHILS % (AUTO) 77.5 % (43.0-81.0); PLATELET COUNT (AUTO) 479 K/uL (150-450); RED BLOOD CELL COUNT(AUTO) 4.06 MIL/uL (4.5-6.0); WHITE BLOOD COUNT (AUTO) 18.3 K/uL (4.3-11.0)
[2022-06-23] MEDS ORDERED: MIRT-121 PO (15:54)
[2022-06-23] MEDS ORDERED: MEGE40TA5 PO (15:54)
[2022-06-23] MEDS ORDERED: APIX2.5T PO (15:54)
[2022-06-23] MEDS ORDERED: CYAN10006 IJ (15:54)
[2022-06-23] MEDS ORDERED: FOLI0.4T6 PO (15:54)
[2022-06-23] MEDS ORDERED: PYRI100T22 PO (15:54)
[2022-06-23] MEDS ORDERED: GEMTESA PO (15:54)
[2022-06-23] MEDS ORDERED: CHOL200013 PO (15:54)
[2022-06-23] MEDS ORDERED: PIMA34CA PO (15:54)
[2022-06-23] MEDS ORDERED: FLUT16SP16 NS (15:54)
[2022-06-23 16:02] LABS: ALANINE AMINOTRANSFERASE 9 U/L (12-78); ALKALINE PHOSPHATASE 85 U/L (46-116); ASPARTATE AMINOTRANSFERASE 18 U/L (15-37); BILIRUBIN,DIRECT 0.2 mg/dL (0.0-0.2); BILIRUBIN,TOTAL 0.5 mg/dL (0.2-1.0); CALCIUM, SERUM 8.6 mg/dL (8.5-10.1); CARBON DIOXIDE 27 mmol/L (21-32); CHLORIDE 96 mmol/L (98-107); CREATININE 0.7 mg/dL (0.6-1.3); GLUCOSE 118 mg/dL (74-106); POTASSIUM 4.1 mmol/L (3.5-5.1); SODIUM SERUM 130 mmol/L (136-145); TOTAL PROTEIN, SERUM 8.5 g/dL (6.4-8.2); UREA NITROGEN, BLOOD 16 mg/dL (7-18)
--- NOTE | 2022-06-23 16:31 | NUR ---
RAPID COVID SWAB DONE AND SENT TO LAB
--- NOTE | 2022-06-23 17:01 | NUR ---
URINE SAMPLE COLLECTED VIA IN AND OUT CATHETER, SENT SAMPLE TO LAB
[2022-06-23] MEDS ORDERED: MAG HYDROX/AL HYDROX/SIMETH 30 ML UDC PO PRN (18:00)
[2022-06-23] MEDS ORDERED: MAGNESIUM HYDROXIDE 30 ML UDC PO PRN ×2 (18:00)
[2022-06-23] MEDS ORDERED: ONDANSETRON HCL/PF 4 MG/2 ML VIAL IVP PRN (18:00)
[2022-06-23] MEDS ORDERED: ACETAMINOPHEN 325 MG TABLET PO PRN (18:00)
[2022-06-23] MEDS ORDERED: ACETAMINOPHEN 650 MG/20.3 ML UDC PO PRN (18:00)
[2022-06-23] MEDS ORDERED: Z GUARD REMEDY 4 OZ OINT TP PRN (18:00)
--- NOTE | 2022-06-23 18:09 | NUR ---
BED 114-1
--- NOTE | 2022-06-23 18:10 | NUR ---
urine sample obtained sent to lab
[2022-06-23 18:15] LABS: BILIRUBIN,URINE NEGATIVE (NEGATIVE); COLOR,URINE YELLOW (YELLOW); LEUKOCYTE ESTERASE ,URINE 2+ (NEGATIVE); NITRITE, URINE NEGATIVE (NEGATIVE); PROTEIN,URINE TRACE mg/dl (NEGATIVE); UGLUCOSE NEGATIVE (NEGATIVE)
[2022-06-23 18:40] LABS: BACTERIA,URINE 3+ /HPF (None Seen); SQUAMOUS EPITHELIAL CELL,UR 0-2 /HPF (None Seen); WBC,URINE 21-50 /HPF (0-3)
--- NOTE | 2022-06-23 20:34 | NUR ---
REPORT GIVEN TO MEL RN FOR MARLEN
--- NOTE | 2022-06-23 21:49 | NUR ---
TRANSFERRED TO BED IN STABLE CONDITION
[2022-06-23 22:00] VITALS: BP 91/68
[2022-06-23] MEDS: TERAZOSIN HCL 5 MG CAPSULE PO SCH (22:00)
--- NOTE | 2022-06-23 22:00 | NUR ---
noc rn note scheduled 2100 Pepcid 20mg tab administered late d/t med pass to other patients. scheduled 2200 Hytrin non-administered d/t low bp.
[2022-06-23] MEDS: MIRTAZAPINE 15 MG TABLET PO SCH (22:43)
[2022-06-23] MEDS: FAMOTIDINE (20 MG) 20 MG TABLET PO SCH (22:44)
[2022-06-23] MEDS: IV NS 0.9% 1,000 ML IV PRN (22:54)
--- NOTE | 2022-06-24 02:38 | NUR ---
ADMISSION NOTES PATIENT BROUGHT IN UNIT AT AROUND 2136, ACCOMPANIED BY 2 ER PERSONNELS VIA STRETCHER. PATIENT IS A/OX3-4 UPON ASSESSMENT. NO S/S OF APPARENT DISTRESS ON ROOM AIR SATURATING 99%. DENIES PAIN AT THIS TIME. PATIENT WISH TO BE FULL CODE AT THIS TIME BUT DENIES HAVING ANY ADVANCED DIRECTIVE. NEW ID BAND ON PATIENT. BELONGINGS CHECKED, WITH UPPER DENTURES. SKIN ASSESSMENT DONE AT THIS TIME, WITH DTI ON SACRAL AREA-- PICTURES TAKEN AND WOUND CONSULT IN PLACE. PATIENT NOW ON IV NS RUNNING @75MLS/HR ON HIS IV ACCESS RT. FA#[id number]. PER PATIENT HE IS UP-TO-DATE WITH ALL HIS IMMUNIZATIONS INCLUDING COVID. DENIES SMOKING AND DRINKING ALCOHOL. PATIENT WAS ORIENTED IN THE UNIT AND THE USE OF CALL LIGHT. WILL FOLLOW THROUGH DOCTOR'S ORDERS AND CONTINUE WITH THE PATIENT CARE PLAN. PATIENT ABLE TO TOLERATE WHOLE PILLS.
[2022-06-24 05:00] VITALS: BP 104/66
[2022-06-24 06:34] LABS: BASOPHILS # (AUTO) 0.1 K/uL (0.0-0.2); BASOPHILS % (AUTO) 0.8 % (0.0-2.0); EOSINOPHILS % (AUTO) 0.4 % (0.0-6.0); HEMATOCRIT 32 % (39-51); HEMOGLOBIN 10.3 g/dL (13.5-17.5); LYMPHOCYTES # (AUTO) 2.1 K/uL (0.8-4.8); LYMPHOCYTES % (AUTO) 13.2 % (20.0-44.0); MEAN CORPUSCULAR HGB CONC 33 g/dl (31.0-36.0); MEAN CORPUSCULAR VOLUME 87 fL (80-96); MONOCYTES # (AUTO) 1.1 K/uL (0.1-1.30); MONOCYTES % (AUTO) 6.9 % (2.0-12.0); NEUTROPHILS # (AUTO) 12.7 K/uL (1.8-8.9); NEUTROPHILS % (AUTO) 78.7 % (43.0-81.0); PLATELET COUNT (AUTO) 406 K/uL (150-450); RED BLOOD CELL COUNT(AUTO) 3.63 MIL/uL (4.5-6.0); WHITE BLOOD COUNT (AUTO) 16.1 K/uL (4.3-11.0)
--- NOTE | 2022-06-24 07:22 | NUR ---
noc rn closing note patient in bed with eyes closed, easy to arouse. no s/s of apparent distress in room air. denies pain at this time. IV NS running @75mls/hr. all needs attended. all scheduled medications administered. call light within reach. safety in place. Endorsed to [facility] for continuity of patient care.
[2022-06-24 07:27] LABS: CALCIUM, SERUM 7.9 mg/dL (8.5-10.1); CREATININE 0.6 mg/dL (0.6-1.3); MAGNESIUM 1.8 mg/dL (1.8-2.4); PHOSPHORUS 3.3 mg/dL (2.5-4.9); POTASSIUM 3.7 mmol/L (3.5-5.1)
--- NOTE | 2022-06-24 07:35 | NUR ---
OPENING NOTES PATIENT IS AWAKE,ALERT, ORIENTED X4, RESTING IN BED COMFORTABLY, NO SIGNS OF IN DISTRESS, UNLABORED BREATHING ON ROOM AIR, NO COMPLAINT OF PAIN, SIDE RAILS UP, CALL LIGHT WITHIN REACH.
[2022-06-24] MEDS: FERROUS SULFATE (325 MG) 325 MG/TAB TABLET PO SCH (08:21)
[2022-06-24] MEDS: FLUTICASONE PROPIONATE 16 GM BOTTLE NS SCH ×2 (08:21→16:07)
[2022-06-24] MEDS: MULTIVITAMINS,THERAGRAN 1 UDTAB TABLET PO SCH (08:21)
[2022-06-24] MEDS: FAMOTIDINE (20 MG) 20 MG TABLET PO SCH ×2 (08:21→20:18)
[2022-06-24] MEDS: DOCUSATE SODIUM LIQ 100 MG/10 ML UDC PO SCH ×2 (08:21→16:07)
[2022-06-24] MEDS: APIXABAN 2.5 MG TABLET PO SCH ×2 (08:23→16:09)
[2022-06-24] MEDS ORDERED: CARBIDOPA/LEVODOPA 25/250 MG 1 UDTAB PO SCH (09:00)
[2022-06-24] MEDS: CARBIDOPA/LEVODOPA 25/100 MG 1 UDTAB PO SCH ×3 (09:08→16:08)
[2022-06-24] MEDS: CEFTRIAXONE 1 G in IV D5W 50 ML IV SCH (10:22)
[2022-06-24] MEDS: ENSURE ENLIVE 237 ML LIQUID (VANILLA) PO SCH ×2 (11:35→16:07)
[2022-06-24] MEDS: IV NS 0.9% 1,000 ML IV PRN (13:55)
[2022-06-24 16:00] VITALS: BP 114/67
--- NOTE | 2022-06-24 18:32 | NUR ---
CLOSING NOTE PATIENT RESTING IN BED COMFORTABLY, AWAKE, ALERT, ORIENTEDX3, COMPLAINT OF NO APPETITE, ONLY DRINK ENSURE, NO SIGNS OF IN DISTRESS, UNLABORED BREATHING ON ROOM AIR, VITAL SIGNS ARE STABLE, BED IN LOW POSITION, SIDE RAILS UP, CALL LIGHT WITHIN REACH.
--- NOTE | 2022-06-24 19:31 | NUR ---
MS1 RN NOTES RECEIVED LAYING ON BED WITH HOB ELEVATED.BREATHING REGULAR,NOT IN ANY FORM OF DISTRESS.A/O X3.PRESENT IVF NS AT 75ML/HR RATE,INFUSING ON RIGHT FA SALINE LOCK VIA IV PUMP.INCONTINENT OF URINE,CALL LIGHT IN REACH,NEEDS ANTICIPATED.
--- NOTE | 2022-06-24 19:33 | NUR ---
MS1 RN NOTES FALL RISK,BED ON LOWEST POSITION AND LOCKED,BED ALARM.
[2022-06-24 20:00] VITALS: BP 97/63
--- NOTE | 2022-06-24 20:18 | NUR ---
MS1 RN NOTES WITH ELEVATED TEMP OF 99.9 ORALLY,TYLENOL 650 LIQUID GIVEN ORALLY,TAKEN WELL.NEGATIVE FOR ASPIRATION
[2022-06-24] MEDS: TERAZOSIN HCL 5 MG CAPSULE PO SCH (21:26)
[2022-06-24] MEDS: MIRTAZAPINE 15 MG TABLET PO SCH (21:35)
--- NOTE | 2022-06-25 01:00 | NUR ---
MS1 RN NOTES HAD BM,CLEANED AND KEPT DRY. DRESSING CHANGE DONE TO SACRAL WOUND.KEPT C/D/I
[2022-06-25] MEDS: IV NS 0.9% 1,000 ML IV PRN ×2 (01:01→15:06)
[2022-06-25 04:00] VITALS: BP 119/71
[2022-06-25 06:10] LABS: BASOPHILS % (AUTO) 0.3 % (0.0-2.0); EOSINOPHILS % (AUTO) 1.2 % (0.0-6.0); HEMATOCRIT 31 % (39-51); LYMPHOCYTES # (AUTO) 2.7 K/uL (0.8-4.8); LYMPHOCYTES % (AUTO) 19.4 % (20.0-44.0); MEAN CORPUSCULAR HGB CONC 32 g/dl (31.0-36.0); MEAN CORPUSCULAR VOLUME 88 fL (80-96); MONOCYTES # (AUTO) 1.1 K/uL (0.1-1.30); MONOCYTES % (AUTO) 7.7 % (2.0-12.0); NEUTROPHILS # (AUTO) 9.9 K/uL (1.8-8.9); NEUTROPHILS % (AUTO) 71.4 % (43.0-81.0); PLATELET COUNT (AUTO) 407 K/uL (150-450); RED BLOOD CELL COUNT(AUTO) 3.55 MIL/uL (4.5-6.0); WHITE BLOOD COUNT (AUTO) 13.8 K/uL (4.3-11.0)
[2022-06-25 06:27] LABS: CALCIUM, SERUM 8.1 mg/dL (8.5-10.1); CREATININE 0.6 mg/dL (0.6-1.3); POTASSIUM 3.7 mmol/L (3.5-5.1)
--- NOTE | 2022-06-25 06:33 | NUR ---
MS1 RN NOTES SLEEP WELL NIGHT,KEPT WARM AND COMFOTABLE.REPOSITION PER PROTOCOL.IN NO ACUTE DISTRESS.
[2022-06-25] MEDS: DOCUSATE SODIUM LIQ 100 MG/10 ML UDC PO SCH ×2 (07:47→16:12)
[2022-06-25] MEDS: MULTIVITAMINS,THERAGRAN 1 UDTAB TABLET PO SCH (07:48)
[2022-06-25] MEDS: FERROUS SULFATE (325 MG) 325 MG/TAB TABLET PO SCH (07:48)
[2022-06-25] MEDS: CARBIDOPA/LEVODOPA 25/100 MG 1 UDTAB PO SCH ×3 (07:48→16:12)
[2022-06-25] MEDS: FAMOTIDINE (20 MG) 20 MG TABLET PO SCH ×2 (07:48→21:42)
[2022-06-25] MEDS: APIXABAN 2.5 MG TABLET PO SCH ×2 (07:49→16:13)
[2022-06-25] MEDS: ENSURE ENLIVE 237 ML LIQUID (VANILLA) PO SCH ×3 (07:55→16:14)
[2022-06-25] MEDS: FLUTICASONE PROPIONATE 16 GM BOTTLE NS SCH ×2 (07:55→16:12)
[2022-06-25 08:00] VITALS: BP 110/61
[2022-06-25] MEDS: CEFTRIAXONE 1 G in IV D5W 50 ML IV SCH (09:09)
[2022-06-25 16:00] VITALS: BP 122/78
--- NOTE | 2022-06-25 18:12 | NUR ---
CLOSING NOTE PATIENT RESTING IN BED COMFORTABLY, AWAKE, ALERT, ORIENTEDX3,NO COMPLAINT OF PAIN, NO SIGNS OF IN DISTRESS, UNLABORED BREATHING ON ROOM AIR, VITAL SIGNS ARE STABLE, BED IN LOW POSITION, SIDE RAILS UP, CALL LIGHT WITHIN REACH.
--- NOTE | 2022-06-25 19:30 | NUR ---
PATIENT RESTING IN BED COMFORTABLY, AWAKE, A/O X3, NO COMPLAINT OF PAIN, ON ROOM AIR, TOLERATING WELL. IV ACCESS ON RFA G#20 INFUSING 0.9NS AT 75ML/HR. SAFETY MEASURES IN PLACE. WILL CONTINUE PLAN OF CARE.
[2022-06-25] MEDS: TERAZOSIN HCL 5 MG CAPSULE PO SCH (21:42)
[2022-06-25] MEDS: MIRTAZAPINE 15 MG TABLET PO SCH (21:43)
[2022-06-25 22:00] VITALS: BP 114/72
[2022-06-26] MEDS: IV NS 0.9% 1,000 ML IV PRN (01:47)
[2022-06-26 04:00] VITALS: BP 108/56
[2022-06-26 06:15] LABS: CALCIUM, SERUM 7.9 mg/dL (8.5-10.1); CARBON DIOXIDE 25 mmol/L (21-32); CHLORIDE 104 mmol/L (98-107); CREATININE 0.4 mg/dL (0.6-1.3); GLUCOSE 120 mg/dL (74-106); POTASSIUM 3.6 mmol/L (3.5-5.1); SODIUM SERUM 135 mmol/L (136-145); UREA NITROGEN, BLOOD 10 mg/dL (7-18)
[2022-06-26 06:24] LABS: BASOPHILS % (AUTO) 0.4 % (0.0-2.0); EOSINOPHILS % (AUTO) 3.7 % (0.0-6.0); HEMATOCRIT 29 % (39-51); HEMOGLOBIN 9.6 g/dL (13.5-17.5); LYMPHOCYTES # (AUTO) 2.2 K/uL (0.8-4.8); LYMPHOCYTES % (AUTO) 24.9 % (20.0-44.0); MEAN CORPUSCULAR HGB CONC 33 g/dl (31.0-36.0); MEAN CORPUSCULAR VOLUME 87 fL (80-96); MONOCYTES # (AUTO) 0.7 K/uL (0.1-1.30); MONOCYTES % (AUTO) 7.5 % (2.0-12.0); NEUTROPHILS # (AUTO) 5.7 K/uL (1.8-8.9); NEUTROPHILS % (AUTO) 63.5 % (43.0-81.0); PLATELET COUNT (AUTO) 349 K/uL (150-450); RED BLOOD CELL COUNT(AUTO) 3.37 MIL/uL (4.5-6.0)
--- NOTE | 2022-06-26 06:31 | NUR ---
PATIENT ASLEEP, RESTING IN BED COMFORTABLY, EASILY AWAKEN TO TOUCH AND VOICE, A/O X3, NO COMPLAINT OF PAIN, ON ROOM AIR, TOLERATING WELL. IV ACCESS ON RFA G#20 INFUSING 0.9NS AT 75ML/HR. DUE MEDS GIVEN NEEEDED AND ORDERED. NEEDS ATTENDED. SAFETY MEASURES MAINTAINED. WILL ENDORSE TO NEXT NURSE ON DUTY FOR CONTINUITY OF CARE.
--- NOTE | 2022-06-26 07:00 | NUR ---
MS RN OPENING NOTES: RECEIVED PT IN BED ASLEEP, EAILY AROUSED WITH STIMULI. PT A/O X 3. NO SOB OR CARDIAC DISTRESSS NOTED, DENIES PAIN AT THIS TIME. IV ACCESS ON RFA GAUGE 20 PATENT, INTACT AND INFUSING NS 1L@ 75ML/HR. SAFETY MEASURES MAINTAINED: BED LOCKED AND IN LOWEST POSITION, SIDE RAILS UP X 2 CALL LIGHT IN EASY REACH FOR HELP. WILL MONITOR PT ACCORDINGLY.
[2022-06-26] MEDS: ENSURE ENLIVE 237 ML LIQUID (VANILLA) PO SCH ×2 (08:00→12:03)
[2022-06-26] MEDS: CARBIDOPA/LEVODOPA 25/100 MG 1 UDTAB PO SCH ×2 (08:27→12:53)
[2022-06-26] MEDS: DOCUSATE SODIUM LIQ 100 MG/10 ML UDC PO SCH (08:27)
[2022-06-26] MEDS: FLUTICASONE PROPIONATE 16 GM BOTTLE NS SCH (08:27)
[2022-06-26] MEDS: FAMOTIDINE (20 MG) 20 MG TABLET PO SCH (08:27)
[2022-06-26] MEDS: FERROUS SULFATE (325 MG) 325 MG/TAB TABLET PO SCH (08:28)
[2022-06-26] MEDS: MULTIVITAMINS,THERAGRAN 1 UDTAB TABLET PO SCH (08:28)
[2022-06-26] MEDS: APIXABAN 2.5 MG TABLET PO SCH (08:30)
[2022-06-26] MEDS ORDERED: LEVO500T90 PO (08:52)
[2022-06-26] MEDS: CEFTRIAXONE 1 G in IV D5W 50 ML IV SCH (09:37)
[2022-06-26 10:00] VITALS: BP 114/72
--- NOTE | 2022-06-26 13:30 | NUR ---
CHARGE NURSE NOTES: PATIENT DC TO [facility]. REPORT GIVEN TO MARICRUZ (CASH MANAGEMENT CLERK). PATIENT ALERT AND ORIENTED X 4 AND ABLE TO MAKE NEEDS KNOWN. NO SOB OR CARDIAC DISTRESS NOTED, DENIES PAIN AT THIS TIME. WOUND CARE TX DONE. BELONGINGS TAKEN. IV ACCESS REMOVED. IDENTIFICATION BAND IN PLACE. DISCHARGE PACKET GIVEN TO OCEAN RESCUE LIEUTENANT. PT LEFT THE UNIT STABLE VIA GURNEY.
[2022-06-29] MEDS ORDERED: CYANOCOBALAMIN 1,000 MCG/ML VIAL IM SCH (12:00)
== END 2022-06-26 13:27 | DRG 689 ==
LOC: ER 14:24 → TELE1 18:27 → MEDSG1 21:38
PROVIDERS: ADMIT Internal Medicine; ATTEND Internal Medicine
DX: N39.0 Urinary tract infection, site not specified (principal); E43 Unspecified severe protein-calorie malnutrition; L89.94 Pressure ulcer of unspecified site, stage 4; D68.59 Other primary thrombophilia; E87.1 Hypo-osmolality and hyponatremia; K86.1 Other chronic pancreatitis; D63.8 Anemia in other chronic diseases classified elsewhere; E11.9 Type 2 diabetes mellitus without complications; G20 Parkinson's disease; N40.0 Benign prostatic hyperplasia without lower urinary tract symptoms; N31.9 Neuromuscular dysfunction of bladder, unspecified; R27.8 Other lack of coordination; M24.572 Contracture, left ankle; M24.571 Contracture, right ankle; Z86.718 Personal history of other venous thrombosis and embolism; Z86.711 Personal history of pulmonary embolism; Z96.0 Presence of urogenital implants; R13.10 Dysphagia, unspecified; Z79.01 Long term (current) use of anticoagulants; Z79.51 Long term (current) use of inhaled steroids; E86.1 Hypovolemia; Z79.899 Other long term (current) drug therapy; D64.9 Anemia, unspecified; Z74.09 Other reduced mobility; E88.09 Other disorders of plasma-protein metabolism, not elsewhere classified; I10 Essential (primary) hypertension; B96.20 Unspecified Escherichia coli [E. coli] as the cause of diseases classified elsewhere
CPT/HCPCS: 36415; 71045-TC; 80048-TC; 80076-TC; 81001; 83605-TC; 83735-TC; 84100-TC; 84484-TC; 85025-TC; 85730-TC; 87040-TC; 87081-TC; 87086-TC; A6253; A6403; C9803; G0378; J0696; J7030; J7060